=== PATIENT | female | born 1980 | race Caucasian/White ===

== ENCOUNTER 2016-08-05 12:54 | Inpatient (IN) | payer MEDICARE, MEDICAID ==
[~2016-08-05] VITALS: Ht 154.9 cm; Wt 95.2 kg
[~2016-08-05 12:54] MED LIST: ADDE10CA3; ADDE30CA PO; AMBI10TA; AMBI10TA PO; AMPH30TA PO; BUSP15TA; DOXE25CA PO; EFFE150C PO; EFFE75CA75 PO; EXCETAB80 PO; FERR325T; IBUP600T; LEVO75TA4 PO; MINI2CAP PO; Metamucil PO; PAXI40TA; PRED20TA; SENO8.6T2 PO; TRAZ50TA4 PO; XANA1TAB2; XANA1TAB2 PO
[2016-08-05] MEDS ORDERED: BELS1TAB3 PO (13:06)
[2016-08-05] MEDS ORDERED: ADDE30CA PO (13:06)
[2016-08-05] MEDS ORDERED: AMOX875T PO (13:07)
[2016-08-05 15:00] LABS: MEAN CORPUSCULAR HEMOGLOBIN 29.6 pg (27.0-33.0); MEAN CORPUSCULAR HGB CONC 32.9 g/dl (32.0-36.5); MEAN CORPUSCULAR VOLUME 90.1 fl (80.0-96.0); RED CELL DISTRIBUTION WIDTH 12.9 % (11.5-14.5); WHITE BLOOD COUNT 15.8 K/mm3 (4.0-10.0)
[2016-08-05 15:30] LABS: ALBUMIN/GLOBULIN RATIO 1.05 (1.00-1.93); ALKALINE PHOSPHATASE 68 U/L (45-117); ALT/SGPT 18 U/L (12-78); ANION GAP 9 MEQ/L (8-16); AST/SGOT 12 U/L (15-37); BILIRUBIN,DIRECT < 0.1 MG/DL (0.0-0.2); BILIRUBIN,TOTAL 0.4 MG/DL (0.2-1.0); BLOOD UREA NITROGEN 12 MG/DL (7-18); CALCIUM LEVEL 8.6 MG/DL (8.5-10.1); CARBON DIOXIDE LEVEL 26 MEQ/L (21-32); CHLORIDE LEVEL 108 MEQ/L (98-107); CREATININE FOR GFR 0.76 MG/DL (0.55-1.02); GLOMERULAR FILTRATION RATE > 60.0 (>60); GLUCOSE, FASTING 129 MG/DL (70-105); POTASSIUM SERUM 3.3 MEQ/L (3.5-5.1); SODIUM LEVEL 143 MEQ/L (136-145); TOTAL PROTEIN 7.8 GM/DL (6.4-8.2)
[2016-08-05 15:33] LABS: METHADONE URINE NEGATIVE (NEGATIVE)
[2016-08-05] MEDS ORDERED: LORazepam 0.5 MG TAB PO STA (16:46)
[2016-08-05] MEDS ORDERED: LORazepam 1 MG TAB As Ordered ONE (16:56)
[2016-08-05] MEDS ORDERED: ADDE5TAB5 PO (18:50)
[2016-08-05 20:30] VITALS: BP 143/93
[2016-08-05] MEDS ORDERED: ENTER DRUG NAME HERE (PATIENT'S OWN MED) PO SCH (21:30)
[2016-08-05] MEDS ORDERED: MAALOX 30 ML SUSP *UDC PO PRN (21:30)
[2016-08-05] MEDS ORDERED: MOM 30ML SUSPENSION UDC PO PRN (21:30)
[2016-08-05] MEDS ORDERED: zolPIDEM TARTRATE 10MG TAB PO ONE (21:45)
[2016-08-06 06:14] VITALS: BP 121/76
[2016-08-06] MEDS: LEVOTHYROXINE 0.075 MG TAB (75 MCG) PO SCH (06:26)
[2016-08-06] MEDS: NICOTINE 21MG/24HR 1 EA TRANSDERMAL TD SCH (08:14)
[2016-08-06] MEDS: ADDERALL 5 MG TAB PO SCH ×2 (08:15→13:33)
[2016-08-06] MEDS: AMOXICILLIN 875 MG TAB PO SCH ×2 (10:34→22:37)
--- NOTE | 2016-08-06 11:39 | HPEPDOC ---
Medical History and Physical Date of Admission Aug 05, 2016 at 18:03 History and Physical PCP: Manan OCONNOR ATTENDING: Dr. Navin Segundo HPI: 35yoF admitted to [facility] for unspecified depressive disorder, being medically examined today. Patient states she was started on amoxicillin last Thursday for bilateral otitis media. She states her symptoms have improved. She was seen at urgent care in [place]. Denies any fevers, chills, weakness, fatigue, JUAN, CP, SOB, cough, palpitations, abdominal pain, N/V/D or changes in bowel or bladder habits. PMHx: Fibromyalgia Hypothyroidism Anxiety Depression PTSD Obesity BMI 39.7 Tobacco use PSHX: Right carpal tunnel release SOCHX: Resides in: [facility] Marital Status: Single Kids: 1 Employment: Unemployed Tobacco use: One pack per day ETOH: Denies Illicit Drugs: Denies IV Drug Use: Denies Tattoos done unprofessionally: Denies FAMHX: Mother: Alive, well Father: Alive, lung disease Siblings: One sister Alive, liver disease Children: Alive, autism Unexpected deaths due to medical reasons: None. ROS: As noted in HPI, otherwise 11pt ROS of systems reviewed and remarkable only for LMP 07/06/16 PE: GEN: 35 yo F appears stated age. Well-nourished, well developed. No acute distress. Alert and oriented x 3. Pleasant, interactive. HEENT: Normocephalic, atraumatic. Pupils are equal, round, and reactive to light. Extraocular movements are intact. No nystagmus appreciated. Sclera are nonicteric. Conjunctiva without injection. Nose midline. Nasal turbinates without bogginess. EACs both patent BL. TMs both visualized there is serous fluid noted L>R. No facial asymmetry. Moist mucous membranes. Dentition fair. Pharynx pink and moist, no cobblestoning. Neck supple, trachea midline. No lymphadenopathy or thyromegaly appreciated. CHEST: Regular rate and rhythm, +S1, +S2 LUNGS: Clear to auscultation bilaterally. No wheezes, rales, or rhonchi. Breathing appears symmetric and easy. Patient is speaking in full sentences. No accessory muscle use. ABD: Round, soft, non-tender, non-distended. +Bowel sounds throughout. No rebound or guarding. No costovertebral angle tenderness. EXT: Pulses 2+ bilaterally dorsalis pedis and radial. No lower extremity edema appreciated. SKIN: [place], dry, warm. Capillary refill <2sec. No rashes. NEURO: Alert and oriented x 3. Cranial nerves III-XII are intact. No focal deficits appreciated. EKG: Pending. A&P: 35yoF admitted to [facility] for unspecified depressive disorder 1. Psych. Plan per Psychiatry. Obtain baseline EKG to assure the safety of psychiatric medications as they can prolong the QT interval. 2. Nicotine dependence. Patch available. 3. Fibromyalgia. Continue Tylenol as needed. 4. Follow up with PCP on discharge. 5. Hypothyroidism. Continue levothyroxine 75 g daily. TSH noted within normal limits. 6. Obesity, BMI 39.7. Complicates care. 7. H/O Bilateral otitis media. Finish course of amoxicillin 875 mg by mouth twice a day. Recheck CBC. 8. Hypokalemia. Recheck BMP. Supplement if needed. 9. Staff member present throughout exam, Mary Lou LINDSAY. Vital Signs Vital Signs Label Value Date Time Patient Temperature 96.4 degrees F 08/06/16613 Temperature Source Tympanic 08/06/16 06 Pulse 97 08/06/16 0614 Respiratory Rate 18 bpm 08/06/16 0614 Blood Pressure Assessment 121/76 (91) 08/06/16 0614 Laboratory Data Labs 24H Laboratory Tests 2 08/05/16 14:48: Acetaminophen Level < 2.0L, Aspartate Amino Transf (AST/SGOT) 12L, Alanine Aminotransferase (ALT/SGPT) 18, Alkaline Phosphatase 68, Total Bilirubin 0.4, Direct Bilirubin < 0.1, Albumin 4.0, Albumin/Globulin Ratio 1.05, Anion Gap 9, Calcium Level 8.6, Ethyl Alcohol Level < 0.003, Glomerular Filtration Rate > 60.0, Salicylates Level < 1.7L, Thyroid Stimulating Hormone (TSH) 2.020, Total Protein 7.8 08/05/16 14:49: Urine Amphetamines Screen NEGATIVE, Urine Benzodiazepines Screen NEGATIVE, Urine Opiates Screen NEGATIVE, Urine Barbiturates Screen NEGATIVE, Urine Cannabinoids Screen NEGATIVE, Urine Cocaine Metabolite Screen NEGATIVE, Urine Methadone Screen NEGATIVE, Urine Phencyclidine Screen NEGATIVE CBC/BMP Laboratory Tests 08/05/16 14:48 Red Blood Count 4.54, Mean Corpuscular Volume 90.1, Mean Corpuscular Hemoglobin 29.6, Mean Corpuscular Hemoglobin Concent 32.9, Red Cell Distribution Width 12.9 Home Medications Scheduled Amoxicillin (Amoxicillin) 875 Mg Tab 875 MG PO BID ON DAY 4 OF 7 DAY COURSE Amphetamine/Dextroamphetamine (Adderall 5 mg) 1 Tab Tab 30 MG PO BID Levothyroxine Sodium (Synthroid) 75 Mcg Tab 75 MCG PO DAILY PT STATES HAS NOT TAKEN IN WEEKS Allergies Coded Allergies: Latex (Verified Allergy, Mild, RASH, 08/05/16) Ziprasidone (Verified Allergy, Unknown, 08/05/16) Trixie Elias Aug 06, 2016 11:39
[2016-08-06 12:49] LABS: MEAN CORPUSCULAR HEMOGLOBIN 29.2 pg (27.0-33.0); MEAN CORPUSCULAR HGB CONC 32.6 g/dl (32.0-36.5); MEAN CORPUSCULAR VOLUME 89.6 fl (80.0-96.0); RED CELL DISTRIBUTION WIDTH 12.9 % (11.5-14.5); WHITE BLOOD COUNT 15.2 K/mm3 (4.0-10.0)
[2016-08-06 13:09] LABS: ANION GAP 12 MEQ/L (8-16); BLOOD UREA NITROGEN 14 MG/DL (7-18); CALCIUM LEVEL 9.2 MG/DL (8.5-10.1); CARBON DIOXIDE LEVEL 24 MEQ/L (21-32); CHLORIDE LEVEL 105 MEQ/L (98-107); CREATININE FOR GFR 0.79 MG/DL (0.55-1.02); GLOMERULAR FILTRATION RATE > 60.0 (>60); GLUCOSE, FASTING 96 MG/DL (70-105); POTASSIUM SERUM 3.8 MEQ/L (3.5-5.1); SODIUM LEVEL 141 MEQ/L (136-145)
[2016-08-06] MEDS: ACETAMINOPHEN TAB 650MG DOSE (2X325MG) PO PRN (14:59)
[2016-08-06] MEDS ORDERED: IBUPROFEN 800 MG TAB PO PRN (15:30)
--- NOTE | 2016-08-06 17:15 | ECGEPIP ---
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
[2016-08-06 18:00] VITALS: BP 138/86
[2016-08-06] MEDS ORDERED: LORazepam 1 MG TAB PO PRN ×2 (19:30→22:00)
[2016-08-06] MEDS ORDERED: LORazepam 1 MG TAB PO ONE (21:00)
[2016-08-06] MEDS ORDERED: PERCOCET 5MG/325MG TAB PO ONE (21:00)
[2016-08-06] MEDS: zolPIDEM TARTRATE 10MG TAB PO SCH (22:38)
[2016-08-07] MEDS: LEVOTHYROXINE 0.075 MG TAB (75 MCG) PO SCH (06:19)
[2016-08-07 06:43] VITALS: BP 113/57
[2016-08-07] MEDS: AMOXICILLIN 875 MG TAB PO SCH ×2 (07:49→21:39)
[2016-08-07] MEDS: ADDERALL 5 MG TAB PO SCH ×2 (07:49→13:20)
[2016-08-07] MEDS: NICOTINE 21MG/24HR 1 EA TRANSDERMAL TD SCH (07:50)
[2016-08-07] MEDS ORDERED: PERCOCET 5MG/325MG TAB PO ONE ×2 (08:00→10:00)
[2016-08-07] MEDS ORDERED: PSEUDOEPHEDRINE 30 MG TAB PO PRN (10:15)
--- NOTE | 2016-08-07 11:55 | IPNPDOC ---
Subjective Date Seen The patient was seen on 08/07/16. Subjective Chief Complaint/HPI The patient is a 35-year-old female admitted with a reason for visit of Upspecified Depressive Disorder. Events since last encounter Requested to reevaluate the patient for ear pain. The patient states last evening she was having left-sided ear pain. She still has been having some upper respiratory congestion and some pressure in her ears. Clear rhinorrhea. No sore throat. Some postnasal drip No chest congestion. No coughing. No chest pain or shortness of breath. Overall symptoms have been improved on amoxicillin. She started this last Thursday from urgent care. Objective Physical Examination General Exam: Positive: Alert Eye Exam: Positive: PERRLA ENT Exam: Positive: Atraumatic, Ext Auditory Canal Nml (there is no cerumen noted in her ear canals.), Other ENT (there is serous fluid noted behind the tympanic membranes bilaterally left greater than right with mild retraction noted of the left tympanic membrane.), Pinna Normal (there is no external tenderness with palpation.) Neck Exam: Positive: Supple Chest Exam: Positive: Clear to auscultation Heart Exam: Positive: Normal S1, Normal S2, Rate Normal, Regular Rhythm, Negative: Murmurs, Rubs Skin Exam: Positive: Nl turgor and temperature Assessment /Plan Problems (1) Bilateral otitis media Status: Acute Problem Text: * Patient will finish her course of amoxicillin 875 mg by mouth twice a day. * Patient is afebrile * Symptoms have been improving. (2) Eustachian tube dysfunction Status: Acute Problem Text: * Patient has experienced some left-sided ear pain. * This is likely related to eustachian tube dysfunction. * We will add Sudafed 30 mg every 6 hours as needed for ear pain or pressure. * Add Flonase 2 sprays each nostril daily. * Continue with ibuprofen 800 mg 3 times a day as needed. * Discussed with patient who verbalizes understanding and agreement Plan/VTE VTE Prophylaxis Ordered?: No (ambulatory) VS, I&O, 24H, Fishbone Vital Signs/I&O Vital Signs Date Time Temp Pulse Resp B/P Pulse Ox O2 Delivery O2 Flow Rate FiO2 08/07/16 07:50 16 08/07/16 06:43 96.3 82 113/57 08/05/16 20:15 99 08/05/16 18:25 Room Air Laboratory Data 24H LABS Laboratory Tests 2 08/06/16 12:00: Anion Gap 12, Blood Urea Nitrogen 14, Creatinine 0.79, Sodium Level 141, Potassium Level 3.8, Chloride Level 105, Carbon Dioxide Level 24, Calcium Level 9.2, Glomerular Filtration Rate > 60.0 CBC/BMP Laboratory Tests 08/06/16 12:00 Calcium Level 9.2, Red Blood Count 4.60, Mean Corpuscular Volume 89.6, Mean Corpuscular Hemoglobin 29.2, Mean Corpuscular Hemoglobin Concent 32.6, Red Cell Distribution Width 12.9 Trixie Elias Aug 07, 2016 11:55
[2016-08-07] MEDS: FLUTICASONE PROP 0.05% NASAL SPRAY 16 GM (FLONASE) SCH (12:01)
[2016-08-07] MEDS ORDERED: PERCOCET 5MG/325MG TAB PO PRN (18:00)
[2016-08-07] MEDS ORDERED: ONDANSETRON 4 MG ORAL DISINTEGRATING TAB (S0181) PO PRN (18:00)
[2016-08-07] MEDS: zolPIDEM TARTRATE 10MG TAB PO SCH (21:39)
[2016-08-08] MEDS: LEVOTHYROXINE 0.075 MG TAB (75 MCG) PO SCH (06:13)
[2016-08-08 06:44] VITALS: BP 120/75
[2016-08-08] MEDS: FLUTICASONE PROP 0.05% NASAL SPRAY 16 GM (FLONASE) SCH (08:44)
[2016-08-08] MEDS: ADDERALL 5 MG TAB PO SCH ×2 (08:44→14:18)
[2016-08-08] MEDS: AMOXICILLIN 875 MG TAB PO SCH ×2 (08:45→22:23)
[2016-08-08] MEDS: NICOTINE 21MG/24HR 1 EA TRANSDERMAL TD SCH (08:45)
[2016-08-08 18:00] VITALS: BP 135/88
[2016-08-08] MEDS: zolPIDEM TARTRATE 10MG TAB PO SCH (22:23)
[2016-08-09] MEDS: LEVOTHYROXINE 0.075 MG TAB (75 MCG) PO SCH (06:15)
[2016-08-09 07:07] VITALS: BP 115/67
[2016-08-09] MEDS: FLUTICASONE PROP 0.05% NASAL SPRAY 16 GM (FLONASE) SCH (08:08)
[2016-08-09] MEDS: AMOXICILLIN 875 MG TAB PO SCH ×2 (08:09→21:19)
[2016-08-09] MEDS: NICOTINE 21MG/24HR 1 EA TRANSDERMAL TD SCH (08:09)
[2016-08-09] MEDS: ADDERALL 5 MG TAB PO SCH ×2 (08:09→14:06)
[2016-08-09 18:00] VITALS: BP 126/80
[2016-08-09] MEDS: zolPIDEM TARTRATE 10MG TAB PO SCH (21:18)
[2016-08-10] MEDS: LEVOTHYROXINE 0.075 MG TAB (75 MCG) PO SCH (06:09)
[2016-08-10 06:53] VITALS: BP 127/56
[2016-08-10] MEDS: NICOTINE 21MG/24HR 1 EA TRANSDERMAL TD SCH (08:27)
[2016-08-10] MEDS: ADDERALL 5 MG TAB PO SCH ×2 (08:27→14:01)
[2016-08-10] MEDS: AMOXICILLIN 875 MG TAB PO SCH ×2 (08:27→21:06)
[2016-08-10] MEDS: FLUTICASONE PROP 0.05% NASAL SPRAY 16 GM (FLONASE) SCH (08:27)
[2016-08-10 18:00] VITALS: BP 134/86
[2016-08-10] MEDS: zolPIDEM TARTRATE 10MG TAB PO SCH (21:46)
[2016-08-11] MEDS: LEVOTHYROXINE 0.075 MG TAB (75 MCG) PO SCH (06:15)
[2016-08-11] MEDS: ACETAMINOPHEN TAB 650MG DOSE (2X325MG) PO PRN (06:17)
[2016-08-11 06:23] VITALS: BP 139/91
[2016-08-11] MEDS: AMOXICILLIN 875 MG TAB PO SCH ×2 (08:17→22:04)
[2016-08-11] MEDS: FLUTICASONE PROP 0.05% NASAL SPRAY 16 GM (FLONASE) SCH (08:17)
[2016-08-11] MEDS: ADDERALL 5 MG TAB PO SCH ×2 (08:18→14:34)
[2016-08-11] MEDS: NICOTINE 21MG/24HR 1 EA TRANSDERMAL TD SCH (08:18)
--- NOTE | 2016-08-11 16:52 | IPNPDOC ---
[facility] Progress Note Progress Note DATE OF SERVICE: 08/11/16 HISTORY: The patient was met with today where she described that she had been thinking about the events that had led her to her suicidal thinking. She described that she had begun to think about the traumas that she experienced and their effects on her mood. She related a sense of remorse that she felt as though she did not engage fully in her outpatient psychotherapy. She described feeling as though she withheld much of her deeper thoughts from her therapist. She stated that exploration of these thoughts were difficult and that she frequently would retreat away from her therapist when she approached subjects were too difficult for her. She described that she had an appointment tomorrow and that she was interested in going home as she wanted to engage with her therapist more deeply. She describes difficulties with CPS and care of her children. She was able to identify provoking factors that have led to her admission. The nursing staff had no overt complaints about her over the weekend. She has been noted to attend groups frequently. VITAL SIGNS: See below. NEW TEST RESULTS: None. CURRENT MEDICATIONS: See below. MENTAL STATUS EXAMINATION: Patient is a 35-year old female, who is and cooperative with good hygiene, wearing sweatshirt and jeans. Speech: Is normal in rate volume and articulation. Her speech is coherent and spontaneous. Language skills are intact Thought processes including: Goal directed and future orientated Thought content: Logical and coherent with a linear thought process. Abstract reasoning, and computation: Grossly intact. Description of associations: Intact Description of abnormal or psychotic thoughts: Denies any suicidal or homicidal thoughts. Denies any auditory or visual hallucinations. Does not appear to be responding to internal stimuli Judgment: Fair Insight: Fair Orientation to time place and person Recent and remote memory: Immediate, short-term and long-term memory as evidenced by her ability to remember events from her mission, earlier in the day and autobiographical information Attention span and concentration: Good Language: Normal Fund of knowledge: Good Mood: "Better" Affect: Euthymic with a full range DIAGNOSES: 1. Unspecified depression. 2. Unspecified trauma/stressor related disorder. 3. Tobacco use disorder, moderate, and controlled setting ASSESSMENT: A 35-year-old woman with a history of symptoms consistent with PTSD presenting with depressed mood and suicidal ideation after stressors of having CPS involved in the care of her children. She over her mission has gained more insight into the causes and provoking factors towards her admission. MANAGEMENT PLAN: 1. Continue home Adderall with no changes (see below) 2. Continue home zolpidem with no changes (see below) TIME SPENT: 25 minutes. Vital Signs Vital Signs Date Time Temp Pulse Resp B/P Pulse Ox O2 Delivery O2 Flow Rate FiO2 08/11/16 06:23 97.1 91 20 139/91 08/05/16 20:15 99 08/05/16 18:25 Room Air Current Medications Current Medications Acetaminophen (Tylenol Tab) 650 mg Q6HP PRN PO HEADACHE or DISCOMFORT Last administered on 08/11/16 06:17; Start 08/05/16 at 21:30; Stop 09/04/16 at 21:29 Al Hydrox/Mg Hydrox/Simethicone (Mylanta) 30 ml Q4HP PRN PO HEARTBURN/ INDIGESTION; Start 08/05/16 at 21:30; Stop 09/04/16 at 21:29 Amoxicillin (Amoxicillin) 875 mg BID PO Last administered on 08/11/16 08:17; Start 08/06/16 at 09:00; Stop 08/13/16 at 08:59 Amphetamine/ Dextroamphetamine (Adderall) 30 mg BID@09,14 PO Last administered on 08/11/16 14:34; Start 08/06/16 at 09:00; Stop 08/13/16 at 08:59 Fluticasone Propionate (Flonase 0.05% Nasal [place]) 2 spray DAILY NA Last administered on 08/11/16 08:17; Start 08/07/16 at 09:00; Stop 09/06/16 at 08:59 Home Med (Med Rec Complete!) ASDIRECTED XX ; Start 08/05/16 at 19:00; Stop at 19:00; Status DC Ibuprofen (Advil) 800 mg TID PRN PO MODERATE PAIN (PS 5-7) Last administered on 08/06/16 16:13; Start 08/06/16 at 15:30; Stop 09/05/16 at 15:29 Levothyroxine Sodium (Synthroid) 0.075 mg DAILY@06 PO Last administered on 08/11 06:15; Start 08/06/16 at 06:00; Stop 09/05/16 at 05:59 Lorazepam (Ativan) 1 mg QHS PRN PO IF 1ST DOSE NOT EFFECTIVE; Start 08/06/16 at 19:30; Stop 08/13/16 at 19:29; Status Cancel Lorazepam (Ativan) 1 mg QHS PRN PO IF 1ST DOSE NOT EFFECTIVE Last administered on 08/06/16 23:50; Start 08/06/16 at 22:00; Stop 08/06/16 at 23:59; Status DC Magnesium Hydroxide (Milk Of Magnesia) 30 ml DAILYPRN PRN PO CONSTIPATION; Start 08/05/16 at 21:30; Stop 09/04/16 at 21:29 Nicotine (Nicoderm Cq 21mg) 1 patch DAILY TD Last administered on 08/11/16 08: 18; Start 08/06/16 at 09:00; Stop 09/05/16 at 08:59 Ondansetron HCl (Zofran Odt) 4 mg Q6HP PRN PO NAUSEA OR VOMITING; Start at 18:00; Stop 09/06/16 at 17:59 Oxycodone/ Acetaminophen (Percocet 5mg/ 325mg Tablet) 1 tab Q4HP PRN PO MILD/ MODERATE PAIN (PS 1-7) Last administered on 08/07/16 23:05; Start 08/07/16 at 18: 00; Stop 08/14/16 at 17:59 Patient Own Medication (Patient'S Own Med) 1 ea ASDIRECTED PO ; Start 08/05/16 at 21:30; Stop 08/05/16 at 21:31; Status DC Pseudoephedrine HCl (Sudafed) 30 mg Q6HP PRN PO ear fullness/pressure; Start at 10:15; Stop 09/06/16 at 10:14 Zolpidem Tartrate (Ambien) 10 mg QHS PO Last administered on 08/10/16 21:46; Start 08/06/16 at 21:00; Stop 08/13/16 at 20:59 Allergies Coded Allergies: Latex (Verified Allergy, Mild, RASH, 08/05/16) Ziprasidone (Verified Allergy, Unknown, 08/05/16) GME ATTESTATION My preceptor for this patient encounter was fully available. As needed, all aspects of the patient interview, examination, medical decision making process, and medical care plan development were reviewed and approved by the preceptor. Preceptor is aware and concurs with the plan as stated in the body of this note and will attest to such by his/her cosignature. MAURICIO DELACRUZ DO Aug 11, 2016 16:52
[2016-08-11 18:00] VITALS: BP 144/92
[2016-08-11] MEDS: zolPIDEM TARTRATE 10MG TAB PO SCH (22:04)
[2016-08-12] MEDS: LEVOTHYROXINE 0.075 MG TAB (75 MCG) PO SCH (06:09)
[2016-08-12 06:43] VITALS: BP 104/60
[2016-08-12] MEDS: AMOXICILLIN 875 MG TAB PO SCH ×2 (08:13→21:36)
[2016-08-12] MEDS: FLUTICASONE PROP 0.05% NASAL SPRAY 16 GM (FLONASE) SCH (08:13)
[2016-08-12] MEDS: ADDERALL 5 MG TAB PO SCH ×2 (08:13→14:20)
[2016-08-12] MEDS: NICOTINE 21MG/24HR 1 EA TRANSDERMAL TD SCH (08:14)
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
[2016-08-12 18:00] VITALS: BP 132/79
[2016-08-12] MEDS: zolPIDEM TARTRATE 10MG TAB PO SCH (21:36)
[2016-08-13] MEDS: LEVOTHYROXINE 0.075 MG TAB (75 MCG) PO SCH (05:54)
[2016-08-13 06:00] VITALS: BP 119/64
[2016-08-13] MEDS: AMOXICILLIN 875 MG TAB PO SCH (08:33)
[2016-08-13] MEDS: FLUTICASONE PROP 0.05% NASAL SPRAY 16 GM (FLONASE) SCH (08:33)
[2016-08-13] MEDS: ADDERALL 5 MG TAB PO SCH (08:33)
[2016-08-13] MEDS: NICOTINE 21MG/24HR 1 EA TRANSDERMAL TD SCH (08:34)
[2016-08-13] MEDS ORDERED: FLUTISP (08:37)
[2016-08-13] MEDS ORDERED: NICO21PAT TD (08:37)
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
== END 2016-08-13 11:35 | disposition home or self-care (01) | DRG 881 ==
LOC: M ED 15:10 → M ED INP 18:03 → M PSY 20:25
PROVIDERS: ADMIT Psychiatry & Neurology Psychiatry; ATTEND Internal Medicine Addiction Medicine
DX: F32.9 Major depressive disorder, single episode, unspecified (principal); F17.210 Nicotine dependence, cigarettes, uncomplicated; M79.7 Fibromyalgia; E03.9 Hypothyroidism, unspecified; E87.6 Hypokalemia; F43.11 Post-traumatic stress disorder, acute; E66.9 Obesity, unspecified; F43.12 Post-traumatic stress disorder, chronic; F90.9 Attention-deficit hyperactivity disorder, unspecified type; H66.93 Otitis media, unspecified, bilateral; H69.92 Unspecified Eustachian tube disorder, left ear; Z79.899 Other long term (current) drug therapy; Z91.040 Latex allergy status; Z88.8 Allergy status to other drugs, medicaments and biological substances; Z68.39 Body mass index [BMI] 39.0-39.9, adult

== ENCOUNTER → 2016-09-18 | Outpatient (CLI) | payer MEDICARE, MEDICAID ==
[~2016-09-18] MED LIST changes: +ADDE5TAB5 PO; +AMOX875T PO; +BELS1TAB3 PO; +FLOM5CAP PO; +FLUTISP; +ISOVUE-370 76% 100ML VIAL (Q9967) As Ordered ONE; +NICO21PAT TD; +NORCOTAB PO; +ZOFR4TAB3 PO
--- NOTE | 2016-09-18 14:10 | REP ---
CT urogram: Multiphase CT scanning of the abdomen pelvis are performed. Scanning is initially performed without IV contrast. This is followed by IV contrast enhanced scanning with dual phase scanning, initially during the renal cortical phase of enhancement and again later during the renal excretion phase of enhancement. Comparison is 07/21/2014. On the images prior IV contrast. There are small nonobstructive calculi in both kidneys. There is no hydronephrosis. In the pelvis there is a calcification posterolateral to the urinary bladder on the left. This can be seen in the distal left ureter at its junction with the urinary bladder subsequently during the contrast enhanced scans. This calculus is only partially obstructive. On the reconstructed coronal views a small volume of contrast is seen in the distal left ureter distal to the calculus. There is mild distension of the left ureter. There is no hydronephrosis of the left kidney. There is no perinephric stranding. The visualized lung woo are unremarkable. The hepatic parenchyma, gallbladder, pancreas and spleen are normal size, homogeneous and unremarkable on all phases of the study. The adrenals are unremarkable. The abdominal aorta, bowel and mesentery are unremarkable. Pelvis: The appendix is unremarkable. The uterus and adnexa are unremarkable except for a left adnexal 2 cm follicle. There is no ascites or adenopathy. Impression: There is an incompletely obstructing calculus in the distal left ureter at its junction with the urinary bladder. There is mild left hydroureter. There is no left hydronephrosis. The calculus measures 6 mm in diameter. There are small bilateral nonobstructing renal calculi. There is a 2 cm left adnexal cyst. Signed by Alexsander Macias MD 09/18/2016 02:02 P
== END ==
LOC: M RAD 12:35
PROVIDERS: ATTEND Nurse Practitioner Women's Health
DX: R31.0 Gross hematuria (principal); R10.9 Unspecified abdominal pain; N20.2 Calculus of kidney with calculus of ureter; N13.4 Hydroureter
CPT/HCPCS: 74178; Q9967

== ENCOUNTER 2016-09-22 08:55 | Emergency (ER) | payer MEDICARE, MEDICAID ==
[~2016-09-22] VITALS: Ht 154.9 cm; Wt 97.5 kg
[~2016-09-22 08:55] MED LIST changes: -FLOM5CAP PO; -ISOVUE-370 76% 100ML VIAL (Q9967) As Ordered ONE; -NORCOTAB PO; -ZOFR4TAB3 PO
[2016-09-22 09:37] LABS: DIFF SLIDE NUMBER 134; MEAN CORPUSCULAR HEMOGLOBIN 28.6 pg (27.0-33.0); MEAN CORPUSCULAR HGB CONC 32.4 g/dl (32.0-36.5); MEAN CORPUSCULAR VOLUME 88.2 fl (80.0-96.0); PLATELET COUNT, AUTOMATED 361 k/mm3 (150-450); RED CELL DISTRIBUTION WIDTH 13.2 % (11.5-14.5); WHITE BLOOD COUNT 12.6 K/mm3 (4.0-10.0)
[2016-09-22 09:48] LABS: ANION GAP 8 MEQ/L (8-16); BLOOD UREA NITROGEN 14 MG/DL (7-18); CALCIUM LEVEL 8.7 MG/DL (8.5-10.1); CARBON DIOXIDE LEVEL 24 MEQ/L (21-32); CHLORIDE LEVEL 106 MEQ/L (98-107); CREATININE FOR GFR 0.82 MG/DL (0.55-1.02); GLOMERULAR FILTRATION RATE > 60.0 (>60); GLUCOSE, FASTING 104 MG/DL (70-105); POTASSIUM SERUM 3.8 MEQ/L (3.5-5.1); SODIUM LEVEL 138 MEQ/L (136-145)
[2016-09-22] MEDS ORDERED: ONDANSETRON 4MG/2ML VIAL (J2405) IV ONE (10:00)
[2016-09-22] MEDS ORDERED: KETOROLAC 30 MG/ML VIAL (J1885) IV ONE (10:00)
--- NOTE | 2016-09-22 11:15 | REP ---
RENAL AND BLADDER ULTRASOUND: Real-time sonographic evaluation of the kidneys is performed and demonstrates both kidneys to be normal in size and echotexture, right kidney measuring 10.7 x 5.2 x 4.6 cm and left kidney 11.7 x 5.4 x 5.8 cm. There is mild left hydronephrosis. There is no right hydronephrosis. No renal stones are seen. Urinary bladder measures 5.2 x 7.0 x 5.4 cm with no intraluminal calculus. A left ureteral jet is visualized multiple times with Doppler color evaluation. Right ureteral jet could not be visualized despite observation for a period of 5 minutes. IMPRESSION: Left hydronephrosis. Left ureteral jet visualized multiple times. No right ureteral jet seen. Signed by Alexsander Villarreal MD 09/22/2016 08:08 P
[2016-09-22] MEDS ORDERED: NORCOTAB PO (11:42)
[2016-09-22] MEDS ORDERED: FLOM5CAP PO (11:42)
[2016-09-22] MEDS ORDERED: ZOFR4TAB3 PO (11:42)
[2016-09-22] MEDS ORDERED: MORPHINE 2 MG/ML 1ML SYRINGE IV ONE (11:45)
[2016-09-22 12:56] VITALS: BP 106/56
== END 2016-09-22 12:58 | disposition home or self-care (01) ==
LOC: M ED 09:43
DX: N20.1 Calculus of ureter (principal); E03.9 Hypothyroidism, unspecified; F41.9 Anxiety disorder, unspecified; F43.10 Post-traumatic stress disorder, unspecified; G47.00 Insomnia, unspecified; Z87.442 Personal history of urinary calculi; Z79.899 Other long term (current) drug therapy; Z91.040 Latex allergy status; Z88.8 Allergy status to other drugs, medicaments and biological substances; F17.210 Nicotine dependence, cigarettes, uncomplicated
CPT/HCPCS: 76775; 80048; 81001; 85025; 87086; 96374; 96375; 99282; J1885; J2405

== ENCOUNTER 2016-09-24 10:50 | Emergency (ER) | payer MEDICARE, MEDICAID ==
[~2016-09-24] VITALS: Ht 154.9 cm; Wt 95.3 kg
[~2016-09-24 10:50] MED LIST changes: +FLOM5CAP PO; +NORCOTAB PO; +ZOFR4TAB3 PO
[2016-09-24] MEDS ORDERED: ONDANSETRON 4MG/2ML VIAL (J2405) IV ONE (11:15)
[2016-09-24] MEDS ORDERED: KETOROLAC 30 MG/ML VIAL (J1885) IV ONE (11:15)
[2016-09-24 11:33] LABS: BASO # 0.1 K/mm3 (0.0-0.2); BASO % 0.5 % (0.0-1.0); EOS # 0.3 K/mm3 (0.0-0.50); EOS % 2.2 % (0.0-3.0); LARGE UNSTAINED CELL # 0.1 K/mm3 (0.0-0.4); LYMPH # 3.1 K/mm3 (1.5-4.5); LYMPH % 24.5 % (24.0-44.0); MEAN CORPUSCULAR HEMOGLOBIN 29.1 pg (27.0-33.0); MEAN CORPUSCULAR HGB CONC 32.4 g/dl (32.0-36.5); MEAN CORPUSCULAR VOLUME 89.9 fl (80.0-96.0); MONO # 0.6 K/mm3 (0.0-0.8); MONO % 4.6 % (0.0-5.0); NEUTROPHILS # 8.1 K/mm3 (1.8-7.7); NEUTROPHILS % 67.2 % (36.0-66.0); PLATELET COUNT, AUTOMATED 340 k/mm3 (150-450); RED CELL DISTRIBUTION WIDTH 13.1 % (11.5-14.5)
[2016-09-24 11:52] LABS: ANION GAP 4 MEQ/L (8-16); BLOOD UREA NITROGEN 11 MG/DL (7-18); CALCIUM LEVEL 9.3 MG/DL (8.5-10.1); CARBON DIOXIDE LEVEL 30 MEQ/L (21-32); CHLORIDE LEVEL 105 MEQ/L (98-107); GLOMERULAR FILTRATION RATE > 60.0 (>60); GLUCOSE, FASTING 95 MG/DL (70-105); POTASSIUM SERUM 3.8 MEQ/L (3.5-5.1); SODIUM LEVEL 139 MEQ/L (136-145)
[2016-09-24 12:05] VITALS: BP 142/80
[2016-09-24] MEDS ORDERED: PERCOCET 5MG/325MG TAB PO ONE (12:15)
--- NOTE | 2016-09-24 15:10 | REP ---
REASON: Left flank pain. History of renal calculi. COMPARISON: 09/18/2016 which showed a distal left ureterolith resulting in mild hydronephrosis and hydroureter. That calculus measured 6 mm. Multiple bilateral obstructing renal calculi were also noted. The lung bases are clear and unchanged. Limited evaluation of the solid intra-abdominal organs and gallbladder show no gross abnormalities or significant changes from the prior exam. Limited evaluation from the pancreas and adrenal glands show no changes. The small calculus seen in the inferior pole of the left kidney is unchanged. The multiple calculi seen in the right kidney are unchanged. There is no right-sided hydronephrosis or hydroureter. There is slightly increased left-sided hydronephrosis and hydroureter. The calculus seen at the level of the left ureterovesical junction is unchanged. There is no free fluid or free air in the abdomen or pelvis. The bowel loops and mesenteries are unchanged. The osseous structures are unchanged. IMPRESSION: No change in the appearance of the distal left ureterolith as described above with resultant findings, which have slightly increased. Signed by Tio Farmer DO 09/24/2016 04:52 P
== END 2016-09-24 12:38 | disposition home or self-care (01) ==
LOC: M ED 12:32
DX: N13.2 Hydronephrosis with renal and ureteral calculous obstruction (principal); R11.2 Nausea with vomiting, unspecified
CPT/HCPCS: 74176; 80048; 81001; 85025; 86140; 87086; 96374; 96375; 99283; J1885; J2405

== ENCOUNTER → 2016-09-25 | Outpatient (CLI) | payer MEDICARE, MEDICAID ==
[~2016-09-25] MED LIST changes: +BACT800T5 PO; +CIPR500T89 PO; +PERC5TAB6 PO
[2016-09-25 14:27] LABS: INR 0.85
== END ==
LOC: M SMT 10:57
PROVIDERS: ATTEND Nurse Practitioner Women's Health
DX: Z01.812 Encounter for preprocedural laboratory examination (principal); N20.1 Calculus of ureter; Z79.899 Other long term (current) drug therapy
CPT/HCPCS: 36415; 85610; 85730; G0463

== ENCOUNTER → 2016-09-26 | Day surgery (SDC) | payer MEDICARE, MEDICAID ==
[~2016-09-26] VITALS: Ht 154.9 cm; Wt 97.5 kg
[~2016-09-26] MED LIST changes: +CONRAY-60 60% 50ML VIAL (Q9961) As Ordered ONE; +GLYCOPYRROLATE INJ 0.2 MG/ML 2 ML VIAL As Ordered ONE; +LR 1,000 ML IV SCH; +METOCLOPRAMIDE INJ 10MG/2ML VIAL (J2765) As Ordered ONE; +MIDAZOLAM INJ 2 MG/2 ML VIAL (J2250) As Ordered ONE; +NEOSTIGMINE 1MG/ML 5 ML SYRINGE (J2710) As Ordered ONE; +ONDANSETRON 4MG/2ML VIAL (J2405) As Ordered ONE; +ONDANSETRON 4MG/2ML VIAL (J2405) IV PRN; +PERCOCET 5MG/325MG TAB PO PRN; +PROPOFOL 200 MG/20 ML VIAL As Ordered ONE; +dexameTHASONE 4 MG/ML 1ML VIAL (J1100) As Ordered ONE; +fentaNYL 100 MCG/2 ML INJECTION (J3010) As Ordered ONE; +fentaNYL 100 MCG/2 ML INJECTION (J3010) IV PRN
[2016-09-26 14:11] LABS: CONTROL LINE UCG INT CTR LINE PRESENT
--- NOTE | 2016-09-26 18:15 | REP ---
RETROGRADE PYELOGRAM: HISTORY: Ureteral stone. Two portable radiographs were obtained with the C-Arm. A left ureteral stent is present. A small amount of contrast material is present in the left renal pelvis. Fluoro time 12 seconds. IMPRESSION: Retrograde pyelogram as described above. Signed by Magno Sierra MD 09/26/2016 06:15 P
[2016-09-26 19:00] VITALS: BP 139/74
--- NOTE | 2016-09-27 15:06 | RO ---
DATE OF PROCEDURE: 09/26/2016 PREPROCEDURE DIAGNOSIS: Obstructing left ureteral stone. POSTPROCEDURE DIAGNOSIS: Obstructing left ureteral stone. PROCEDURE: Cystoscopy, left ureteroscopy with basket extraction of stone, left retrograde pyelogram with intraoperative interpretation of images, left ureteral stent placement. SURGEON: Dr. Emmanuel Gaitan EXTENSION WORK DIRECTOR: None. ANESTHESIA: General. OPERATIVE INDICATIONS: This is a 35-year-old female who was found to have an obstructing 6 mm left ureterovesical junction stone. It was recommended she be brought to the operating room today for the above listed procedure. DESCRIPTION OF PROCEDURE: The patient was brought to the operating room where general anesthesia was induced. Prophylactic antibiotics were infused. She was then placed in dorsal lithotomy position and prepped and draped in the usual sterile fashion. A rigid cystoscope was inserted into the urethral meatus and advanced to the bladder. Once within the bladder, a wire was advanced up the left collecting system. I then went up the left collecting system with a short semirigid ureteroscope and within the distal left ureter an impacted 6 mm stone was seen. I then advanced the basket past the stone and grabbed the stone and was able to remove the stone from the ureter. I then went up the more proximal ureter and did not see any more stone fragments. A retrograde pyelogram was then performed and was negative for extravasation, but notable for moderate left hydroureteronephrosis. At this point, the previously placed wire was utilized to advance a 6 [place] x 22-32 cm JJ ureteral stent up into the left collecting system. The wire was then removed and there were adequate curls of the stent in the left renal pelvis and in the bladder. The bladder was then emptied of all fluid and this marked the conclusion of the procedure. The patient was then taken out of the dorsal lithotomy position, awakened from anesthesia and transported to the recovery room in stable condition. ESTIMATED BLOOD LOSS: 0 mL. COMPLICATIONS: None. SPECIMEN: Ureteral stone. PLAN: The patient will followup in the clinic in a week or two for stent removal. IAM
== END | disposition home or self-care (01) ==
LOC: M SDC 13:43
PROVIDERS: ATTEND Urology
DX: N20.1 Calculus of ureter (principal); K21.9 Gastro-esophageal reflux disease without esophagitis; F41.9 Anxiety disorder, unspecified; F90.9 Attention-deficit hyperactivity disorder, unspecified type; G47.00 Insomnia, unspecified; E03.9 Hypothyroidism, unspecified; F43.10 Post-traumatic stress disorder, unspecified; R31.9 Hematuria, unspecified; Z91.040 Latex allergy status; Z79.899 Other long term (current) drug therapy
CPT/HCPCS: 52332; 52352; 74420; 82360; 84703; 88300; C1726; C2617; J0690; J1100; J2250; J2405; J2765; J3010; Q9961

== ENCOUNTER 2016-09-28 10:34 | Emergency (ER) | payer MEDICARE, MEDICAID ==
[~2016-09-28] VITALS: Ht 154.9 cm; Wt 95.3 kg
[~2016-09-28 10:34] MED LIST changes: -BACT800T5 PO; -CIPR500T89 PO; -CONRAY-60 60% 50ML VIAL (Q9961) As Ordered ONE; -GLYCOPYRROLATE INJ 0.2 MG/ML 2 ML VIAL As Ordered ONE; -LR 1,000 ML IV SCH; -METOCLOPRAMIDE INJ 10MG/2ML VIAL (J2765) As Ordered ONE; -MIDAZOLAM INJ 2 MG/2 ML VIAL (J2250) As Ordered ONE; -NEOSTIGMINE 1MG/ML 5 ML SYRINGE (J2710) As Ordered ONE; -ONDANSETRON 4MG/2ML VIAL (J2405) As Ordered ONE; -ONDANSETRON 4MG/2ML VIAL (J2405) IV PRN; -PERC5TAB6 PO; -PERCOCET 5MG/325MG TAB PO PRN; -PROPOFOL 200 MG/20 ML VIAL As Ordered ONE; -dexameTHASONE 4 MG/ML 1ML VIAL (J1100) As Ordered ONE; -fentaNYL 100 MCG/2 ML INJECTION (J3010) As Ordered ONE; -fentaNYL 100 MCG/2 ML INJECTION (J3010) IV PRN
[2016-09-28] MEDS ORDERED: KETOROLAC 30 MG/ML VIAL (J1885) IV ONE (12:00)
[2016-09-28] MEDS ORDERED: MORPHINE 4 MG/ML 1ML SYRINGE IV ONE (12:00)
[2016-09-28] MEDS ORDERED: ONDANSETRON 4MG/2ML VIAL (J2405) IV ONE (12:00)
[2016-09-28 12:30] LABS: MEAN CORPUSCULAR HEMOGLOBIN 28.8 pg (27.0-33.0); MEAN CORPUSCULAR VOLUME 90.3 fl (80.0-96.0); WHITE BLOOD COUNT 15.1 K/mm3 (4.0-10.0)
[2016-09-28 12:31] LABS: BASO # 0.1 K/mm3 (0.0-0.2); BASO % 0.4 % (0.0-1.0); EOS # 0.1 K/mm3 (0.0-0.50); EOS % 0.9 % (0.0-3.0); LARGE UNSTAINED CELL # 0.2 K/mm3 (0.0-0.4); LYMPH # 3.8 K/mm3 (1.5-4.5); LYMPH % 25.3 % (24.0-44.0); MEAN CORPUSCULAR HGB CONC 31.9 g/dl (32.0-36.5); MONO # 0.9 K/mm3 (0.0-0.8); MONO % 5.9 % (0.0-5.0); NEUTROPHILS % 66.5 % (36.0-66.0); PLATELET COUNT, AUTOMATED 300 k/mm3 (150-450); RED CELL DISTRIBUTION WIDTH 13.5 % (11.5-14.5)
[2016-09-28 12:39] LABS: MICROSCOPIC INDICATED? MAN YES (NO)
[2016-09-28 12:43] LABS: BACTERIA, URINE MOD AMOUNT; HYALINE CAST, URINE NONE SEEN /lpf (0-1); MICROSCOPIC EXAM PERFORMED; RBC, URINE TNTC /hpf (0-3); SQUAMOUS EPITHELIAL CELL URINE MOD AMOUNT /hpf (SMALL AMT); WBC, URINE 30-40 /hpf (0-3)
[2016-09-28 12:52] LABS: ANION GAP 5 MEQ/L (8-16); BLOOD UREA NITROGEN 12 MG/DL (7-18); CALCIUM LEVEL 8.8 MG/DL (8.5-10.1); CARBON DIOXIDE LEVEL 28 MEQ/L (21-32); CHLORIDE LEVEL 108 MEQ/L (98-107); CREATININE FOR GFR 0.66 MG/DL (0.55-1.02); GLOMERULAR FILTRATION RATE > 60.0 (>60); GLUCOSE, FASTING 89 MG/DL (70-105); POTASSIUM SERUM 3.6 MEQ/L (3.5-5.1); SODIUM LEVEL 141 MEQ/L (136-145)
[2016-09-28 13:22] VITALS: BP 142/71
[2016-09-28] MEDS ORDERED: PERC5TAB6 PO (13:30)
[2016-09-28] MEDS ORDERED: CIPR500T89 PO (13:30)
[2016-09-28] MEDS ORDERED: BACT800T5 PO (13:37)
== END 2016-09-28 13:43 | disposition home or self-care (01) ==
LOC: M ED 11:48
DX: R10.9 Unspecified abdominal pain (principal); R11.2 Nausea with vomiting, unspecified; E03.9 Hypothyroidism, unspecified; F33.9 Major depressive disorder, recurrent, unspecified; Z79.51 Long term (current) use of inhaled steroids; Z79.899 Other long term (current) drug therapy; Z88.8 Allergy status to other drugs, medicaments and biological substances; Z91.040 Latex allergy status
CPT/HCPCS: 80048; 81000; 87086; 96374; 96375; 99282; J1885; J2405

== ENCOUNTER 2019-05-18 12:51 | Inpatient (IN) | payer MEDICAID, MEDICARE ==
[~2019-05-18] VITALS: Ht 154.9 cm; Wt 62.7 kg
[~2019-05-18 12:51] MED LIST changes: +ADDE1TAB14 PO; -ADDE30CA PO; +ADDE30CA3 PO; -ADDE5TAB5 PO; +BACT800T5 PO; +CIPR-249 PO; -EFFE150C PO; +EFFE150C2 PO; +EFFE75CA2 PO; -EFFE75CA75 PO; +FLOM0.4C39 PO; -FLOM5CAP PO; +HYDR-3715 PO; -NORCOTAB PO; +PERC5TAB12 PO; -SENO8.6T2 PO; +SENO8.6T5 PO; +TRAZ-252 PO; -TRAZ50TA4 PO; +ZOFR4TAB14 PO; -ZOFR4TAB3 PO
[2019-05-18] MEDS ORDERED: NS 1,000 ML IV ONE (13:30)
[2019-05-18] MEDS ORDERED: KETOROLAC 30 MG/ML VIAL (J1885) IV ONE (13:30)
[2019-05-18] MEDS ORDERED: ONDANSETRON 4MG/2ML VIAL (J2405) IV ONE (13:30)
[2019-05-18 14:09] LABS: BASO % 0.5 % (0.0-1.0); EOS # 0.1 10^3/uL (0.0-0.5); EOS % 1.1 % (0.0-3.0); HEMATOCRIT 37.6 % (36.0-47.0); LYMPH # 2.3 10^3/uL (1.5-5.0); LYMPH % 30.9 % (24.0-44.0); MEAN CORPUSCULAR HGB CONC 31.9 g/dl (32.0-36.5); MEAN CORPUSCULAR VOLUME 90.8 fl (80.0-96.0); MONO # 0.8 10^3/uL (0.0-0.8); NEUTROPHILS # 4.3 10^3/uL (1.5-8.5); NEUTROPHILS % 57.4 % (36.0-66.0); PLATELET COUNT, AUTOMATED 228 10^3/uL (150-450); RED BLOOD COUNT 4.14 10^6/uL (4.00-5.40); WHITE BLOOD COUNT 7.6 10^3/uL (4.0-10.0)
[2019-05-18] MEDS ORDERED: VENTAER INH (14:16)
[2019-05-18] MEDS ORDERED: NON-325T5 PO (14:16)
[2019-05-18] MEDS ORDERED: AZIT-12 PO (14:16)
[2019-05-18 14:34] LABS: ALBUMIN 3.2 GM/DL (3.2-5.2); ALT/SGPT 11 U/L (12-78); BILIRUBIN,DIRECT < 0.1 MG/DL (0.0-0.2); BILIRUBIN,TOTAL 0.2 MG/DL (0.2-1.0); LIPASE 64 U/L (73-393); TOTAL PROTEIN 6.3 GM/DL (6.4-8.2)
--- NOTE | 2019-05-18 15:00 | REP ---
Two-view chest: 05/18/2019. Indication: Epigastric pain. Comparison: 02/24/2009. Findings: Air space consolidation of the left lower lobe is present. There is no significant pleural effusion. There is no pneumothorax. The cardiomediastinal silhouette is unremarkable. Impression: Left lower lobe pneumonia. Electronically Signed by Leonard Calloway DO 05/18/2019 02:52 P
[2019-05-18] MEDS ORDERED: LevoFLOXacin IV 750 MG in IV 1 EA IV ONE (15:45)
[2019-05-18] MEDS ORDERED: FLON1SPR NARES (17:08)
[2019-05-18] MEDS ORDERED: ACETAMINOPHEN 325 MG TAB PO PRN (17:45)
--- NOTE | 2019-05-18 17:54 | HPEPDOC ---
[facility] Medical History & Physical Date of Admission May 18, 2019 Date of Service: May 18, 2019 Attending Physician: SUN LOJA MD History and Physical CHIEF COMPLAINT: L flank pain HISTORY OF PRESENT ILLNESS: 38 y.o female w/ PMH of sleeve gastrectomy, Hypothyroidism & recurrent renal calculi presents with L flank pain. Her symptoms started three weeks ago with dizziness, progressed to malaise with fever, chills & sweats over the past few days. She went to [facility] ED, was found to have L sided hydronephrosis, diagnosed with LLL pneumonia and was sent home on Zithromax & albuterol. She presented to our ED today because her symptoms kept worsening, especially fever, flank pain & sweats. She was initially experiencing polyuria but reports decreased urine output for the past 24 hours. She also reports cough for the past few days which has also been presents in her relatives & kids at home. She denies any chest pain, nausea, vomiting abdominal pain or diarrhea at this time. 10 point review of system is negative except for above. PAST MEDICAL HISTORY: 1. Obesity 2. Hypothyroidism 3. recurrent renal calculi PAST SURGICAL HISTORY: 1. sleeve gastrectomy 2. L urteral stent SOCIAL HISTORY: ex-smoker, quit 1 month ago social alcohol use denies drug use FAMILY HISTORY: father w/ lung disease ALLERGIES: Please see below. HOME MEDICATIONS: Please see below. PHYSICAL EXAMINATION: VITAL SIGNS: see below GENERAL APPEARANCE: no distress HEENT: normocephalic, atraumatic CARDIOVASCULAR: S1, S2, no murmurs LUNGS: LLL crackles appreciated ABDOMEN: soft, non-tender, non-distended, +BS EXTREMITIES: ROM intact NEUROLOGICAL: no focal deficits PSYCHIATRIC: calm & cooperative LABORATORY DATA: See below. IMAGING: CXR w/ LLL opacity MICROBIOLOGY: Please see below. ASSESSMENT: 38 y.o female w/ PMH of sleeve gastrectomy, Hypothyroidism & recurrent renal calculi presents with L flank pain & recent imaging w/ L hydronephrosis. PLAN: 1. Flank pain - concerning for obstructive uropathy w/ Pyelonephritis given patient's history & presentation, CT abdomen ordered, ceftriaxone, cultures pending, will consult Urology based on CT results, NPO for now, IV fluids, pain control. - check respiratory viral panel given sick contacts & LLL lesion, CT should also be able to assess LLL 2. Hypothyroidism - continue Levothyroxine DVT Prophylaxis - TEDs GI Prophylaxis - not needed Vital Signs Vital Signs Date Time Temp Pulse Resp B/P (MAP) Pulse Ox O2 Delivery O2 Flow Rate FiO2 05/18/19 13:14 Room Air 05/18/19 13:08 05/18/19 12:52 99.0 81 18 99 Laboratory Data Labs 24H Laboratory Tests 2 05/18/19 13:38: POC Glucose (Misc Panel) 89, POC Sodium (Misc Panel) 140, POC Potassium (Misc Panel) 3.9, POC Chloride (Misc Panel) 104, POC Total CO2 (Misc Panel) 27.0, POC Blood Urea Nitrogen (Misc Panel 9, POC Ionized Calcium (Misc Panel) 4.7, POC Creatinine (Misc Panel) 0.5L, POC Hematocrit (Misc Panel) 38.0 05/18/19 13:47: Immature Granulocyte % (Auto) 0.1, Neutrophils (%) (Auto) 57.4, Lymphocytes (%) (Auto) 30.9, Monocytes (%) (Auto) 10.0H, Eosinophils (%) (Auto) 1.1, Basophils (%) (Auto) 0.5, Neutrophils # (Auto) 4.3, Lymphocytes # (Auto) 2.3, Monocytes # (Auto) 0.8, Eosinophils # (Auto) 0.1, Basophils # (Auto) 0.0, Nucleated Red Blood Cells % (auto) 0.0, Total Bilirubin 0.2, Direct Bilirubin < 0.1, Aspartate Amino Transf (AST/SGOT) 5L, Alanine Aminotransferase (ALT/SGPT) 11L, Alkaline Phosphatase 47, Total Protein 6.3L, Albumin 3.2, Albumin/Globulin Ratio 1.03, Lipase 64L 05/18/19 13:59: POC Beta HCG, Quantitative < 5.0 05/18/19 15:30: Urine Color YELLOW, Urine Appearance CLEAR, Urine pH 6.0, Urine Specific [place] 1.016, Urine Protein NEGATIVE, Urine Glucose (UA) NEGATIVE, Urine Ketones NEGATIVE, Urine Blood 3+H, Urine Nitrite NEGATIVE, Urine Bilirubin NEGATIVE, [place] ne Urobilinogen 0.2, Urine Leukocyte Esterase NEGATIVE, Urine WBC (Auto) 1, Urine RBC (Auto) 73H, Urine Hyaline Casts (Auto) 0, Urine Bacteria (Auto) NEGATIVE, Urine Squamous Epithelial Cells 0, Urine Mucus (Auto) SMALL, Urine Sperm (Auto) , Lactic Acid Level 0.9 CBC/BMP Laboratory Tests 05/18/19 13:47 Microbiology Microbiology 05/18/19 Blood Culture, Received Pending Home Medications Scheduled Azithromycin (Azithromycin) 250 Mg Tablet, 250 MG PO DAILY STARTED 05/17 FOR 5 DAYS Fluticasone Propionate (Flonase Allergy Relief) 9.9 [address] [place].susp, 2 SPRAY NARES DAILY Levothyroxine Sodium (Levothyroxine Sodium) 75 Mcg Tab, 75 MCG PO DAILY Scheduled PRN Acetaminophen (Acetaminophen) 325 Mg Tablet, 2 TAB PO Q4H PRN for PAIN Albuterol Sulfate (Ventolin Hfa) 18 Gm Hfa.aer.ad, 2 PUFFS INH Q4H PRN for SOB/WHEEZING Allergies Coded Allergies: latex (Verified Allergy, Mild, ITCHING, 05/18/19) ziprasidone (Verified Adverse Reaction, Intermediate, DECREASED HEART RATE, 05/18/19) A-FIB/CHADSVASC A-FIB History Current/History of A-Fib/PAF?: No SUN LOJA MD May 18, 2019 17:54
[2019-05-18] MEDS ORDERED: cefTRIAXone SOD 2 GM in D5W MINI-BAG PLUS 50 ML IV SCH (18:00)
[2019-05-18] MEDS: MORPHINE 2 MG/ML 1ML VIAL (J2270) IV PRN (18:10)
[2019-05-18] MEDS: NS 1,000 ML IV SCH (18:18)
--- NOTE | 2019-05-18 19:39 | REPVR ---
PROCEDURE INFORMATION: Exam: CT Abdomen And Pelvis Without Contrast Exam date and time: 05/18/2019 6:41 PM Age: 38 years old Clinical indication: Abdominal pain; Additional info: L flank pain, concern about hydro TECHNIQUE: Imaging protocol: Computed tomography of the abdomen and pelvis without contrast. Radiation optimization: All CT scans at this facility use at least one of these dose optimization techniques: automated exposure control; mA and/or kV adjustment per patient size (includes targeted exams where dose is matched to clinical indication); or iterative reconstruction. COMPARISON: CT ABD PELVIS W/O CONTRAST 09/24/2016 11:32 AM FINDINGS: Lungs: There is consolidation with air bronchogram in the left lower lobe. Liver: Normal. No mass. Gallbladder and bile ducts: No calcified stones. Pancreas: Poorly assessed. Spleen prominent but stable. Adrenals: Poorly assessed. Kidneys and ureters: There is a 3 mm calculus in the left kidney. There are multiple calculi in the right kidney. No obvious calculi are seen in the expected course of the ureters or the ureters are not well-visualized. No obvious hydronephrosis. Stomach and bowel: There is been gastric surgery in comparison to a 09/24/2016 CT. No intestinal obstruction. Appendix: No evidence of appendicitis. Intraperitoneal space: Unremarkable. No free air. No significant fluid collection. Vasculature: Abdominal aorta is poorly assessed. Lymph nodes: Unremarkable. No enlarged lymph nodes. Bladder: Unremarkable as visualized. Reproductive: Uterus and adnexa are not well assessed. Punctate calcifications in region of right adnexa. Bones/joints: Unremarkable. No acute fracture. Soft tissues: Unremarkable. IMPRESSION: 1. Although there are bilateral renal calculi there is no definite evidence of hydronephrosis however the kidneys are poorly evaluated on this noncontrast study. 2. The patient's left-sided pain may be due to consolidation in the left lower lobe likely due to pneumonia although a Wadsworth's hump could also have this appearance. Electronically signed by: Mercedes Tinoco On 05/18/2019 19:39:07 PM
[2019-05-18 22:00] VITALS: BP 107/70
[2019-05-19] MEDS: PIPERACILLIN/TAZOBACTAM SOD 3.375 GM in D5W MINI-BAG PLUS 50 ML IV SCH ×4 (00:51→17:29)
[2019-05-19] MEDS: MORPHINE 2 MG/ML 1ML VIAL (J2270) IV PRN (03:25)
[2019-05-19] MEDS: NS 1,000 ML IV SCH (03:26)
[2019-05-19] MEDS: LEVOTHYROXINE 75MCG TABLET (0.075MG) PO SCH (05:57)
[2019-05-19 06:00] VITALS: BP 111/72
[2019-05-19 06:08] LABS: HEMATOCRIT 33.9 % (36.0-47.0); HEMOGLOBIN 10.8 g/dl (12.0-15.5); MEAN CORPUSCULAR HGB CONC 31.9 g/dl (32.0-36.5); MEAN CORPUSCULAR VOLUME 90.9 fl (80.0-96.0); PLATELET COUNT, AUTOMATED 199 10^3/uL (150-450); RED BLOOD COUNT 3.73 10^6/uL (4.00-5.40); WHITE BLOOD COUNT 5.3 10^3/uL (4.0-10.0)
[2019-05-19 06:36] LABS: ALBUMIN 2.7 GM/DL (3.2-5.2); ALT/SGPT 9 U/L (12-78); BILIRUBIN,TOTAL 0.2 MG/DL (0.2-1.0); BLOOD UREA NITROGEN 7 MG/DL (7-18); CALCIUM LEVEL 8.1 MG/DL (8.5-10.1); CARBON DIOXIDE LEVEL 24 MEQ/L (21-32); CHLORIDE LEVEL 112 MEQ/L (98-107); CREATININE FOR GFR 0.48 MG/DL (0.55-1.30); GLOMERULAR FILTRATION RATE > 60.0 (>60); GLUCOSE, FASTING 81 MG/DL (70-100); MAGNESIUM LEVEL 1.8 MG/DL (1.8-2.4); POTASSIUM SERUM 3.6 MEQ/L (3.5-5.1); SODIUM LEVEL 142 MEQ/L (136-145)
[2019-05-19] MEDS ORDERED: POTASSIUM CHLORIDE 10 MEQ SR TABLET PO ONE (10:00)
[2019-05-19] MEDS ORDERED: MAG SULF 1GM/100ML (MAG RUN) 1 GM in IV 1 EA IV ONE (10:00)
[2019-05-19] MEDS: PERCOCET 5MG/325MG TAB PO PRN ×2 (11:30→18:23)
--- NOTE | 2019-05-19 13:58 | REP ---
RENAL ULTRASOUND: Real-time sonographic evaluation of the kidneys performed. The kidneys are normal in size and echotexture, right kidney measuring 10.9 x 5.5 x 3.4 cm and left kidney 11.1 x 5.2 x 6.4 cm. There is no hydronephrosis bilaterally. A few tiny echogenic foci are seen in the right upper pole collecting system with a 6 mm focus in the lower pole collecting system of the right kidney likely representing a calculus. There appears to be a 4 mm calculus in the mid left renal collecting system. Urinary bladder measures 11.0 x 9.8 x 4 cm for a total volume of 515 mL. There are bilateral ureteral jets in the urinary bladder with Doppler color evaluation. IMPRESSION: Subcentimeter intrarenal calculi without hydronephrosis. Electronically Signed by Alexsander Villarreal MD 05/19/2019 05:13 P
[2019-05-19 14:00] VITALS: BP 99/61
--- NOTE | 2019-05-19 20:22 | IPNPDOC ---
Date Seen The patient was seen on 05/19/19. Progress Note HISTORY OF PRESENT ILLNESS: 38 y.o female w/ PMH of sleeve gastrectomy, Hypothyroidism & recurrent renal calculi presents with L flank pain. Her symptoms started three weeks ago with dizziness, progressed to malaise with fever, chills & sweats over the past few days. She went to [place] ED, was found to have L sided hydronephrosis, diagnosed with LLL pneumonia and was sent home on Zithromax & albuterol. She presented to our ED today because her symptoms kept worsening, especially fever, flank pain & sweats. She was initially experiencing polyuria but reports decreased urine output for the past 24 hours. She also reports cough for the past few days which has also been presents in her relatives & kids at home. She denies any chest pain, nausea, vomiting abdominal pain or diarrhea at this time. 05/19/19 Afebrile overnight, continues to have back pain but improved from yesterday, req uiring less pain control, improvement in cough/chills as well, no new complaints. She denies any chest pain, nausea, vomiting, abdominal pain or diarrhea. 10 point review of system is negative except for above. PHYSICAL EXAMINATION: VITAL SIGNS: see below GENERAL APPEARANCE: no distress HEENT: normocephalic, atraumatic CARDIOVASCULAR: S1, S2, no murmurs LUNGS: LLL crackles appreciated ABDOMEN: soft, non-tender, non-distended, +BS EXTREMITIES: ROM intact NEUROLOGICAL: no focal deficits PSYCHIATRIC: calm & cooperative LABORATORY DATA: See below. IMAGING: CT w/ LLL consolidation, no hydronephrosis appreciated MICROBIOLOGY: Please see below. ASSESSMENT: 38 y.o female w/ PMH of sleeve gastrectomy, Hypothyroidism & recurrent renal calculi is admitted for Pneumonia. PLAN: 1. Pneumonia - CT w/ LLL consolidation, continue Zosyn, no hydronephrosis noted on CT, afebrile overnight, significant improvement in clinical symptoms, continue pain control. 2. Hypothyroidism - continue Levothyroxine DVT Prophylaxis - TEDs GI Prophylaxis - not needed VS, I&O, 24H, Fishbone Vital Signs/I&O Vital Signs Date Time Temp Pulse Resp B/P (MAP) Pulse Ox O2 Delivery O2 Flow Rate FiO2 05/19/19 18:55 16 05/19/19 14:00 97.5 75 99/61 (74) 100 05/18/19 22:00 Room Air I&O- Last 24 Hours up to 6 AM 05/19/19 06:00 Intake Total 2750 ml Balance 2750 ml Laboratory Data 24H LABS Laboratory Tests 2 05/19/19 05:27: Nucleated Red Blood Cells % (auto) 0.0, Anion Gap 6L, Glomerular Filtration Rate > 60.0, Calcium Level 8.1L, Magnesium Level 1.8, Total Bilirubin 0.2, Aspartate Amino Transf (AST/SGOT) 7, Alanine Aminotransferase (ALT/SGPT) 9L, Alkaline Phosphatase 37L, Total Protein 6.0L, Albumin 2.7L, Albumin/Globulin Ratio 0.82L CBC/BMP Laboratory Tests 05/19/19 05:27 Microbiology Microbiology 05/18/19 Respiratory Virus Panel (PCR) ([facility]) - Final, Complete 05/18/19 Blood Culture - Preliminary, Resulted No growth after 24 hours . All specim... 05/18/19 Blood Culture - Preliminary, Resulted No growth after 24 hours . All specim... SUN LOJA MD May 19, 2019 20:22
[2019-05-19 22:00] VITALS: BP 90/76
[2019-05-20] MEDS: PIPERACILLIN/TAZOBACTAM SOD 3.375 GM in D5W MINI-BAG PLUS 50 ML IV SCH ×2 (00:07→05:57)
[2019-05-20] MEDS: LEVOTHYROXINE 75MCG TABLET (0.075MG) PO SCH (05:32)
[2019-05-20] MEDS: PERCOCET 5MG/325MG TAB PO PRN ×2 (05:32→11:40)
[2019-05-20 06:00] VITALS: BP 103/50
[2019-05-20 06:10] LABS: HEMATOCRIT 34.3 % (36.0-47.0); HEMOGLOBIN 11.1 g/dl (12.0-15.5); MEAN CORPUSCULAR HEMOGLOBIN 29.1 pg (27.0-33.0); MEAN CORPUSCULAR HGB CONC 32.4 g/dl (32.0-36.5); MEAN CORPUSCULAR VOLUME 89.8 fl (80.0-96.0); PLATELET COUNT, AUTOMATED 231 10^3/uL (150-450); RED BLOOD COUNT 3.82 10^6/uL (4.00-5.40); WHITE BLOOD COUNT 5.2 10^3/uL (4.0-10.0)
[2019-05-20 06:33] LABS: BLOOD UREA NITROGEN 10 MG/DL (7-18); CALCIUM LEVEL 8.4 MG/DL (8.5-10.1); CARBON DIOXIDE LEVEL 27 MEQ/L (21-32); CHLORIDE LEVEL 110 MEQ/L (98-107); CREATININE FOR GFR 0.59 MG/DL (0.55-1.30); GLOMERULAR FILTRATION RATE > 60.0 (>60); GLUCOSE, FASTING 79 MG/DL (70-100); MAGNESIUM LEVEL 2.1 MG/DL (1.8-2.4); PHOSPHORUS LEVEL 3.7 MG/DL (2.5-4.9); POTASSIUM SERUM 3.9 MEQ/L (3.5-5.1); SODIUM LEVEL 142 MEQ/L (136-145)
[2019-05-20] MEDS ORDERED: LEVA750T7 PO (10:28)
[2019-05-20] MEDS ORDERED: PERCOCET PO (12:18)
--- NOTE | 2019-05-20 15:57 | DS.PDOC ---
Discharge Summary General Date of Admission May 18, 2019 at 17:33 Date of Discharge 05/20/19 Attending Physician: SNU LOJA MD Discharge Summary PROCEDURES PERFORMED DURING STAY: None ADMITTING DIAGNOSES: 1. Pneumonia DISCHARGE DIAGNOSES: 1. Pneumonia COMPLICATIONS/CHIEF COMPLAINT: Flank Pain;Hx Of Sleeve Gastrectomy;Hydronephrosis. HISTORY OF PRESENT ILLNESS: 38 y.o female w/ PMH of sleeve gastrectomy & recurrent renal calculi was admitted for LLL pneumonia. She was treated w/ IV antibiotics with significant clinical improvement, she is has remained afebrile for >48 hours, ambulating without difficulty and having significant improvement in back pain. She will be discharged on Levaquin to complete her antibiotic course. She is advised to return to the ED or call her PCP if fever, chills or sweats recur and/or if her cough/dyspnea worsens. She is clinically and hemodynamically stable for discharge and outpatient follow up. HOSPITAL COURSE: as above DISCHARGE MEDICATIONS: Please see below. ALLERGIES: Please see below. PHYSICAL EXAMINATION: VITAL SIGNS: see below GENERAL APPEARANCE: no distress HEENT: normocephalic, atraumatic CARDIOVASCULAR: S1, S2, no murmurs LUNGS: LLL crackles appreciated ABDOMEN: soft, non-tender, non-distended, +BS EXTREMITIES: ROM intact NEUROLOGICAL: no focal deficits PSYCHIATRIC: calm & cooperative LABORATORY DATA: Please see below. IMAGING: CT w/ LLL pneumonia PROGNOSIS: good ACTIVITY: As tolerated DIET: regular DISCHARGE PLAN: f/u with PCP in 1-2 weeks DISPOSITION: 01 Home, Self-Care. DISCHARGE INSTRUCTIONS: 1. as above DISCHARGE CONDITION: Stable TIME SPENT ON DISCHARGE: Greater than 33 minutes. Vital Signs/I&Os Vital Signs Date Time Temp Pulse Resp B/P (MAP) Pulse Ox O2 Delivery O2 Flow Rate FiO2 05/20/19 12:10 16 05/20/19 06:00 98.8 60 103/50 (67) 98 Room Air I&O- Last 24 Hours up to 6 AM 05/20/19 05:59 Intake Total 2960 ml Output Total 1600 ml Balance 1360 ml Laboratory Data Labs 24H Laboratory Tests 2 05/20/19 05:19: Nucleated Red Blood Cells % (auto) 0.0, Anion Gap 5L, Glomerular Filtration Rate > 60.0, Calcium Level 8.4L, Phosphorus Level 3.7, Magnesium Level 2.1 CBC/BMP Laboratory Tests 05/20/19 05:19 Microbiology Microbiology 05/18/19 Respiratory Virus Panel (PCR) ([facility]) - Final, Complete 05/18/19 Blood Culture - Preliminary, Resulted No growth after 24 hours . All specim... 05/18/19 Blood Culture - Preliminary, Resulted No growth after 24 hours . All specim... Discharge Medications Scheduled Fluticasone Propionate (Flonase Allergy Relief) 9.9 Ml [place].susp, 2 SPRAY NARES DAILY, (Reported) Levofloxacin (Levaquin) 750 Mg Tablet, 1 TAB PO DAILY Levothyroxine Sodium (Levothyroxine Sodium) 75 Mcg Tab, 75 MCG PO DAILY, (Reported) Scheduled PRN Acetaminophen (Acetaminophen) 325 Mg Tablet, 2 TAB PO Q4H PRN for PAIN, (Reported) Albuterol Sulfate (Ventolin Hfa) 18 Gm Hfa.aer.ad, 2 PUFFS INH Q4H PRN for SOB/WHEEZING, (Reported) Oxycodone/Acetaminophen (Oxycodone-Acetaminophen 5-325) 1 Each Tablet, 1 TAB PO Q6HP PRN for MILD/MODERATE PAIN (PS 1-7) Allergies Coded Allergies: latex (Verified Allergy, Mild, ITCHING, 05/18/19) ziprasidone (Verified Adverse Reaction, Intermediate, DECREASED HEART RATE, 05/18/19) SUN LOJA MD May 20, 2019 15:57
== END 2019-05-20 13:21 | disposition home or self-care (01) | DRG 195 ==
LOC: M ED 12:51 → M ED INP 17:33 → M MSPAV 19:55
PROVIDERS: ADMIT Internal Medicine; ATTEND Internal Medicine
DX: J18.9 Pneumonia, unspecified organism (principal); Z91.040 Latex allergy status; Z88.8 Allergy status to other drugs, medicaments and biological substances; Z79.899 Other long term (current) drug therapy; E66.9 Obesity, unspecified; E03.9 Hypothyroidism, unspecified; Z87.891 Personal history of nicotine dependence; Z87.442 Personal history of urinary calculi

== ENCOUNTER → 2019-06-28 | Outpatient (CLI) | payer MEDICARE, MEDICAID ==
[~2019-06-28] MED LIST changes: +AZIT-12 PO; +FLON1SPR NARES; +LEVA750T7 PO; +NON-325T5 PO; +PERCOCET PO; +VENTAER INH
--- NOTE | 2019-06-29 07:46 | REP ---
SACRUM AND COCCYX: Three view of the sacrum and coccyx are performed. No definite fracture or dislocation is seen. Lateral view is somewhat oblique, which limits the exam. There is partial sacralization of L5 on the left. IMPRESSION: No definite fracture or dislocation. Electronically Signed by Alexsander Villarreal MD 06/29/2019 10:36 P
== END ==
LOC: M LRY 16:35
PROVIDERS: ATTEND Physician Assistant
DX: S39.92XA Unspecified injury of lower back, initial encounter (principal); W00.9XXA Unspecified fall due to ice and snow, initial encounter; Y92.9 Unspecified place or not applicable
CPT/HCPCS: 72220; G0463

== ENCOUNTER 2020-03-20 13:57 | Emergency (ER) | payer BC, MEDICAID, MEDICARE, SELFPAY ==
[~2020-03-20] VITALS: Ht 154.9 cm; Wt 67.7 kg
[2020-03-20 14:49] LABS: BASO # 0.1 10^3/uL (0.0-0.2); BASO % 0.6 % (0.0-1.0); EOS # 0.1 10^3/uL (0.0-0.5); EOS % 1.3 % (0.0-3.0); HEMATOCRIT 37.4 % (36.0-47.0); HEMOGLOBIN 11.7 g/dl (12.0-15.5); LYMPH # 3.1 10^3/uL (1.5-5.0); MEAN CORPUSCULAR HEMOGLOBIN 28.5 pg (27.0-33.0); MEAN CORPUSCULAR HGB CONC 31.3 g/dl (32.0-36.5); MEAN CORPUSCULAR VOLUME 91.2 fl (80.0-96.0); MONO # 0.6 10^3/uL (0.0-0.8); MONO % 6.8 % (0.0-5.0); NEUTROPHILS # 5.4 10^3/uL (1.5-8.5); PLATELET COUNT, AUTOMATED 287 10^3/uL (150-450); WHITE BLOOD COUNT 9.3 10^3/uL (4.0-10.0)
[2020-03-20 15:14] LABS: BLOOD UREA NITROGEN 14 MG/DL (7-18); CALCIUM LEVEL 8.7 MG/DL (8.5-10.1); CARBON DIOXIDE LEVEL 28 MEQ/L (21-32); CHLORIDE LEVEL 107 MEQ/L (98-107); CREATININE FOR GFR 0.63 MG/DL (0.55-1.30); GLOMERULAR FILTRATION RATE > 60.0 (>60); GLUCOSE, FASTING 96 MG/DL (70-100); POTASSIUM SERUM 3.7 MEQ/L (3.5-5.1); SODIUM LEVEL 142 MEQ/L (136-145)
[2020-03-20 15:15] LABS: HCG, SERUM QUALITATIVE NEGATIVE (NEGATIVE)
[2020-03-20] MEDS ORDERED: NS 1,000 ML IV ONE (16:45)
--- NOTE | 2020-03-20 18:10 | REPVR ---
PROCEDURE INFORMATION: Exam: US Pelvis Complete, Transabdominal and US Pelvis, Transvaginal Exam date and time: 03/20/2020 6:01 PM Age: 39 years old Clinical indication: Pelvic pain; Additional info: Heavy vaginal bleeding TECHNIQUE: Imaging protocol: Real-time transabdominal and transvaginal pelvic ultrasound (complete) with image documentation. Transvaginal imaging was used for better evaluation of the endometrium, adnexa, and/or cervix. COMPARISON: CT ABD PELVIS W/O CONTRAST 05/18/2019 6:39 PM FINDINGS: Uterus/cervix: Uterus 7.9 x 3.2 x 4.1 cm transabdominally; 6.8 x 3.5 x 5.1 cm transvaginally. Hypoechoic anterior right uterine corporal 8.3 mm leiomyoma. Endometrium 4.9 mm transabdominally; 4.2 mm transvaginally. Right adnexa: Right ovary 2.9 x 2.3 x 2.0 cm transabdominally; 2.0 x 2.7 x 1.7 cm transvaginally. Nonshadowing slightly hypoechoic 1.5 x 1.3 x 1.3 cm right ovarian homogeneous round focus without definite color Doppler blood flow (shifts present are felt to represent low velocity motion artifact). Left adnexa: Left ovary 1.4 x 3.2 x 2.1 cm transabdominally; 1.6 x 2.0 x 1.3 cm transvaginally. Normal arterial and venous blood flow. No mass or cyst.. Intraperitoneal space: No intraperitoneal free fluid. Urinary bladder: Normal. IMPRESSION: Right ovarian hemorrhagic follicle. Electronically signed by: Tano Brunson On 03/20/2020 18:09:55 PM
[2020-03-20 18:52] VITALS: BP 128/84
== END 2020-03-20 18:57 | disposition home or self-care (01) ==
LOC: M ED 13:57
DX: N92.0 Excessive and frequent menstruation with regular cycle (principal); F17.200 Nicotine dependence, unspecified, uncomplicated; Z79.51 Long term (current) use of inhaled steroids; Z79.891 Long term (current) use of opiate analgesic; Z79.899 Other long term (current) drug therapy; Z91.040 Latex allergy status; Z88.8 Allergy status to other drugs, medicaments and biological substances

== ENCOUNTER → 2020-07-24 | Outpatient (CLI) | payer BC ==
[~2020-07-24] MED LIST changes: +ACET-838 PO; -NON-325T5 PO
--- NOTE | 2020-07-24 18:12 | REPVR ---
PROCEDURE INFORMATION: Exam: CT Maxillofacial Without Contrast, Sinus Exam date and time: 07/24/2020 5:43 PM Age: 39 years old Clinical indication: Sinusitis; Chronic; Additional info: Chronic maxillary sinusitis TECHNIQUE: Imaging protocol: CT Maxillofacial without contrast. Focus on the sinuses. Radiation optimization: All CT scans at this facility use at least one of these dose optimization techniques: automated exposure control; mA and/or kV adjustment per patient size (includes targeted exams where dose is matched to clinical indication); or iterative reconstruction. COMPARISON: No relevant prior studies available. FINDINGS: Frontal sinuses: Normal. No air-fluid levels. Ethmoid air cells: Normal. No air-fluid levels. Sphenoid sinuses: Normal. No air-fluid levels. Maxillary sinuses: Normal. No air-fluid levels. Ostiomeatal units are patent. Nasal cavity/Septum: Unremarkable. Orbital cavity: Orbits are normal. Globes are unremarkable. Bones/joints: Unremarkable. Soft tissues: Unremarkable. IMPRESSION: Unremarkable sinuses. Electronically signed by: Yifan Carolina On 07/24/2020 18:13:08 PM
== END ==
LOC: M RAD 17:32
PROVIDERS: ATTEND Otolaryngology
DX: J32.0 Chronic maxillary sinusitis (principal)

== ENCOUNTER → 2021-04-05 | Outpatient (REF) | payer BC ==
[~2021-04-05] MED LIST changes: -ACET-838 PO; +ACET32TAB PO
[2021-04-05 17:17] LABS: BASO # 0.1 10^3/uL (0.0-0.2); BASO % 0.6 % (0.0-1.0); EOS # 0.1 10^3/uL (0.0-0.5); EOS % 0.7 % (0.0-3.0); HEMATOCRIT 38.8 % (36.0-47.0); HEMOGLOBIN 12.2 g/dl (12.0-15.5); LYMPH % 24.7 % (24.0-44.0); MEAN CORPUSCULAR HEMOGLOBIN 27.5 pg (27.0-33.0); MEAN CORPUSCULAR HGB CONC 31.4 g/dl (32.0-36.5); MEAN CORPUSCULAR VOLUME 87.6 fl (80.0-96.0); MONO # 0.8 10^3/uL (0.0-0.8); MONO % 6.3 % (2.0-8.0); NEUTROPHILS # 8.2 10^3/uL (1.5-8.5); NEUTROPHILS % 67.3 % (36.0-66.0); PLATELET COUNT, AUTOMATED 348 10^3/uL (150-450); RED BLOOD COUNT 4.43 10^6/uL (4.00-5.40); WHITE BLOOD COUNT 12.2 10^3/uL (4.0-10.0)
[2021-04-05 17:35] LABS: APPEARANCE, URINE CLEAR (CLEAR); BACTERIA, URINE AUTO NEGATIVE (NEGATIVE); BILIRUBIN, URINE AUTO NEGATIVE (NEGATIVE); BLOOD, URINE BLOOD 2+ (NEGATIVE); COLOR, URINE YELLOW (YELLOW); GLUCOSE, URINE (UA) AUTO NEGATIVE (NEGATIVE); KETONE, URINE AUTO NEGATIVE (NEGATIVE); LEUKOCYTE ESTERASE, URINE AUTO NEGATIVE (NEGATIVE); NITRITE, URINE AUTO NEGATIVE (NEGATIVE); PROTEIN, URINE AUTO NEGATIVE (NEGATIVE); RBC, URINE AUTO 4 /HPF (0-3); SPECIFIC GRAVITY URINE AUTO 1.008 (1.002-1.035); SQUAMOUS EPITHELIAL CELL UR AU 0 /HPF (0-6); UROBILINOGEN, URINE AUTO 0.2 mg/dL (0.0-2.0); WBC, URINE AUTO 0 /HPF (0-3)
[2021-04-05 17:44] LABS: CREATININE,RANDOM URINE 57.2 MG/DL; TOTAL PROTEIN,RANDOM URINE < 5.0 MG/DL (0.0-12.0)
[2021-04-05 17:45] LABS: ALBUMIN 3.9 GM/DL (3.2-5.2); ALT/SGPT 17 U/L (12-78); BILIRUBIN,TOTAL 0.4 MG/DL (0.2-1.0); BLOOD UREA NITROGEN 9 MG/DL (7-18); C REACTIVE PROTEIN QUANTITATIV 0.44 MG/DL (0.00-0.30); CALCIUM LEVEL 8.9 MG/DL (8.5-10.1); CARBON DIOXIDE LEVEL 27 MEQ/L (21-32); CHLORIDE LEVEL 109 MEQ/L (98-107); COMPLEMENT C3 88 MG/DL (90-180); COMPLEMENT C4 23 MG/DL (10-40); CPK CREATINE PHOSPHOKINASE 60 U/L (26-192); CREATININE FOR GFR 0.62 MG/DL (0.55-1.30); GLOMERULAR FILTRATION RATE > 60.0 (>60); GLUCOSE, FASTING 85 MG/DL (70-100); LDH LACTATE DEHYDROGENASE 134 U/L (84-246); POTASSIUM SERUM 3.6 MEQ/L (3.5-5.1); SODIUM LEVEL 139 MEQ/L (136-145); TOTAL PROTEIN 7.4 GM/DL (6.4-8.2)
[2021-04-05 18:21] LABS: ERYTHROCYTE SEDIMENTATION RATE 12 mm/hr (0-20)
== END ==
LOC: M SFHCRHEU 14:31
PROVIDERS: ATTEND Internal Medicine Rheumatology
DX: M25.50 Pain in unspecified joint (principal)

== ENCOUNTER 2021-12-25 09:01 | Emergency (ER) | payer BC ==
[~2021-12-25] VITALS: Ht 154.9 cm; Wt 72.7 kg
[2021-12-25 09:01] VITALS: BP 115/82
[2021-12-25] MEDS ORDERED: SUMA25TA3 (09:09)
[2021-12-25] MEDS ORDERED: GI COCKTAIL 50ML BTL(HYOSCYAMINE/MAALOX/LIDOCAINE VISCOUS)(1:3:1) PO ONE (10:30)
[2021-12-25 11:00] LABS: BASO # 0.1 10^3/uL (0.0-0.2); BASO % 1.1 % (0.0-1.0); EOS # 0.1 10^3/uL (0.0-0.5); EOS % 1.1 % (0.0-3.0); HEMATOCRIT 39.9 % (36.0-47.0); HEMOGLOBIN 12.5 g/dl (12.0-15.5); LYMPH # 2.2 10^3/uL (1.5-5.0); LYMPH % 29.7 % (24.0-44.0); MEAN CORPUSCULAR HEMOGLOBIN 26.8 pg (27.0-33.0); MEAN CORPUSCULAR HGB CONC 31.3 g/dl (32.0-36.5); MEAN CORPUSCULAR VOLUME 85.4 fl (80.0-96.0); MONO # 0.5 10^3/uL (0.0-0.8); MONO % 6.5 % (2.0-8.0); NEUTROPHILS # 4.6 10^3/uL (1.5-8.5); NEUTROPHILS % 61.5 % (36.0-66.0); PLATELET COUNT, AUTOMATED 353 10^3/uL (150-450); RED BLOOD COUNT 4.67 10^6/uL (4.00-5.40); WHITE BLOOD COUNT 7.5 10^3/uL (4.0-10.0)
[2021-12-25 11:29] LABS: ALBUMIN 4.1 GM/DL (3.2-5.2); ALT/SGPT 14 U/L (12-78); BILIRUBIN,DIRECT 0.2 MG/DL (0.0-0.2); BILIRUBIN,TOTAL 0.4 MG/DL (0.2-1.0); BLOOD UREA NITROGEN 13 MG/DL (7-18); CALCIUM LEVEL 9.3 MG/DL (8.5-10.1); CARBON DIOXIDE LEVEL 26 MEQ/L (21-32); CHLORIDE LEVEL 108 MEQ/L (98-107); CREATININE FOR GFR 0.72 MG/DL (0.55-1.30); GLOMERULAR FILTRATION RATE > 60.0 (>60); GLUCOSE, FASTING 89 MG/DL (70-100); LIPASE 94 U/L (73-393); POTASSIUM SERUM 4.2 MEQ/L (3.5-5.1); SODIUM LEVEL 140 MEQ/L (136-145); TOTAL PROTEIN 7.8 GM/DL (6.4-8.2)
[2021-12-25] MEDS ORDERED: SIME180C25 PO (12:24)
== END 2021-12-25 12:34 | disposition home or self-care (01) ==
LOC: M ED 09:01
DX: R13.10 Dysphagia, unspecified (principal); R19.5 Other fecal abnormalities; R14.0 Abdominal distension (gaseous); E03.9 Hypothyroidism, unspecified; F43.10 Post-traumatic stress disorder, unspecified; Z88.8 Allergy status to other drugs, medicaments and biological substances; Z91.040 Latex allergy status; Z79.899 Other long term (current) drug therapy; Z79.890 Hormone replacement therapy

== ENCOUNTER → 2022-06-20 | Outpatient (REF) | payer BC ==
[~2022-06-20] MED LIST changes: +SIME180C25 PO; +SUMA25TA3
[2022-06-20 19:13] LABS: HEMOGLOBIN 11.7 g/dl (12.0-15.5); MEAN CORPUSCULAR HEMOGLOBIN 25.7 pg (27.0-33.0); MEAN CORPUSCULAR VOLUME 85.7 fl (80.0-96.0); PLATELET COUNT, AUTOMATED 384 10^3/uL (150-450); RED BLOOD COUNT 4.55 10^6/uL (4.00-5.40); WHITE BLOOD COUNT 6.6 10^3/uL (4.0-10.0)
[2022-06-20 19:28] LABS: ALBUMIN 4.1 G/DL (3.2-5.2); ALKALINE PHOSPHATASE 54 U/L (46-116); ALT/SGPT 23 U/L (7.0-40); AST/SGOT 23 U/L (<34); BILIRUBIN,TOTAL 0.5 MG/DL (0.3-1.2); BLOOD UREA NITROGEN 16 MG/DL (9-23); CALCIUM LEVEL 9.3 MG/DL (8.5-10.1); CARBON DIOXIDE LEVEL 27 MMOL/L (20-31); CHLORIDE LEVEL 103 MMOL/L (98-107); CHOLESTEROL LEVEL 193 MG/DL (<200); CHOLESTEROL RISK RATIO 2.79 (<5); CREATININE FOR GFR 0.61 MG/DL (0.55-1.30); GLOMERULAR FILTRATION RATE > 60.0 (>60); GLUCOSE, FASTING 73 MG/DL (60-100); LDL CHOLESTEROL 111.2 MG/DL (<100); NON-HDL-C 124 MG/DL; POTASSIUM SERUM 4.4 MMOL/L (3.5-5.1); SODIUM LEVEL 140 MMOL/L (136-145); THYROID STIMULATING HORMONE 3.435 uIU/ML (0.55-4.78); TOTAL PROTEIN 7.4 G/DL (5.7-8.2); TRIGLYCERIDES LEVEL 64 MG/DL (<150)
[2022-06-20 19:54] LABS: ERYTHROCYTE SEDIMENTATION RATE 24 mm/hr (0-20)
== END ==
LOC: M LAB REF 16:39
PROVIDERS: ATTEND Physician Assistant
DX: R76.8 Other specified abnormal immunological findings in serum (principal); M79.7 Fibromyalgia; G43.009 Migraine without aura, not intractable, without status migrainosus; E03.9 Hypothyroidism, unspecified

== ENCOUNTER → 2022-08-20 | Outpatient (CLI) | payer BC | LOC: M EKG 09:52 | PROVIDERS: ATTEND Physician Assistant | DX: R23.2 Flushing (principal) ==

== ENCOUNTER → 2022-08-25 | Outpatient (CLI) | payer BC | LOC: M RAD 15:34 → M LAB 15:34 | PROVIDERS: ATTEND Physician Assistant | DX: M25.511 Pain in right shoulder (principal) ==

== ENCOUNTER → 2022-09-08 | Outpatient (CLI) | payer BC ==
[~2022-09-08] MED LIST changes: +FLUT50SP17; -FLUTISP
== END ==
LOC: M RAD 15:14
PROVIDERS: ATTEND Nurse Practitioner Family
DX: N93.9 Abnormal uterine and vaginal bleeding, unspecified (principal); N92.6 Irregular menstruation, unspecified; N84.1 Polyp of cervix uteri

== ENCOUNTER → 2022-09-23 | Outpatient (CLI) | payer BC | LOC: M WHC 15:59 | PROVIDERS: ATTEND Nurse Practitioner Family | DX: Z12.31 Encounter for screening mammogram for malignant neoplasm of breast (principal); Z53.8 Procedure and treatment not carried out for other reasons ==

== ENCOUNTER → 2022-10-31 | Outpatient (REF) | payer BC ==
[2022-10-31 17:14] LABS: RHEUMATOID FACTOR QUANT < 3.5 IU/ML (<14)
[2022-10-31 17:17] LABS: THYROID STIMULATING HORMONE 2.502 uIU/ML (0.55-4.78)
[2022-11-04 20:07] LABS: CYCLIC CITRULLINATED PEPTIDE 4 units (0-19); SSA SJOGRENS A <0.2 AI (0.0-0.9); SSB SJOGRENS B 0.8 AI (0.0-0.9)
== END ==
LOC: M LAB REF 16:21
PROVIDERS: ATTEND Physician Assistant
DX: R23.2 Flushing (principal); H04.123 Dry eye syndrome of bilateral lacrimal glands; R68.2 Dry mouth, unspecified; R76.8 Other specified abnormal immunological findings in serum; M25.50 Pain in unspecified joint; M79.7 Fibromyalgia; E03.9 Hypothyroidism, unspecified

== ENCOUNTER → 2022-12-25 | Outpatient (CLI) | payer BC ==
[2022-12-25 11:50] LABS: ALBUMIN 3.8 G/DL (3.2-5.2); ALKALINE PHOSPHATASE 55 U/L (46-116); ALT/SGPT 9 U/L (7.0-40); AST/SGOT < 8 U/L (<34); BILIRUBIN,TOTAL 0.5 MG/DL (0.3-1.2); BLOOD UREA NITROGEN 14 MG/DL (9-23); CALCIUM LEVEL 9.1 MG/DL (8.5-10.1); CARBON DIOXIDE LEVEL 25 MMOL/L (20-31); CHLORIDE LEVEL 106 MMOL/L (98-107); CREATININE FOR GFR 0.53 MG/DL (0.55-1.30); GLOMERULAR FILTRATION RATE > 60.0 (>58); GLUCOSE, FASTING 76 MG/DL (60-100); POTASSIUM SERUM 3.8 MMOL/L (3.5-5.1); SODIUM LEVEL 141 MMOL/L (136-145); TOTAL PROTEIN 7.1 G/DL (5.7-8.2)
== END ==
LOC: M RAD 10:30
PROVIDERS: ATTEND Physician Assistant
DX: M79.605 Pain in left leg (principal); R23.2 Flushing

== ENCOUNTER → 2023-05-10 | Outpatient (REF) | payer BC ==
[~2023-05-10] MED LIST changes: -EFFE150C2 PO; +EFFE150C3 PO; -FLUT50SP17; +FLUTISP
== END ==
LOC: M LAB REF 13:34
PROVIDERS: ATTEND Physician Assistant Medical
DX: J02.9 Acute pharyngitis, unspecified (principal)

== ENCOUNTER → 2023-06-30 | Outpatient (CLI) | payer BC | LOC: M WHC 12:54 | PROVIDERS: ATTEND Nurse Practitioner Family | DX: N60.11 Diffuse cystic mastopathy of right breast (principal); N60.12 Diffuse cystic mastopathy of left breast; N63.23 Unspecified lump in the left breast, lower outer quadrant; N64.4 Mastodynia | CPT/HCPCS: 76641; 76642; 77066; G0279 ==

== ENCOUNTER → 2023-08-12 | Outpatient (REF) | payer BC ==
[2023-08-12 17:20] LABS: BASO % 0.5 % (0.0-1.0); EOS # 0.1 10^3/uL (0.0-0.5); HEMATOCRIT 40.6 % (36.0-47.0); LYMPH # 1.6 10^3/uL (1.5-5.0); LYMPH % 26.9 % (24.0-44.0); MEAN CORPUSCULAR VOLUME 84.2 fl (80.0-96.0); MONO # 0.8 10^3/uL (0.0-0.8); MONO % 12.8 % (2.0-8.0); NEUTROPHILS # 3.4 10^3/uL (1.5-8.5); NEUTROPHILS % 57.3 % (36.0-66.0); PLATELET COUNT, AUTOMATED 276 10^3/uL (150-450); RED BLOOD COUNT 4.82 10^6/uL (4.00-5.40)
[2023-08-12 17:41] LABS: ALBUMIN 3.7 G/DL (3.2-5.2); ALKALINE PHOSPHATASE 51 U/L (46-116); ALT/SGPT 22 U/L (7.0-40); AST/SGOT 11 U/L (<34); BILIRUBIN,TOTAL 0.2 MG/DL (0.3-1.2); BLOOD UREA NITROGEN 13 MG/DL (9-23); CALCIUM LEVEL 7.8 MG/DL (8.5-10.1); CARBON DIOXIDE LEVEL 25 MMOL/L (20-31); CHLORIDE LEVEL 105 MMOL/L (98-107); CHOLESTEROL LEVEL 136 MG/DL (<200); CHOLESTEROL RISK RATIO 2.61 (<5); CREATININE FOR GFR 0.52 MG/DL (0.55-1.30); GLOMERULAR FILTRATION RATE > 60.0 (>58); GLUCOSE, FASTING 89 MG/DL (60-100); HDL CHOLESTEROL 52.1 MG/DL (>40); LDL CHOLESTEROL 68.9 MG/DL (<100); NON-HDL-C 83.9 MG/DL; POTASSIUM SERUM 3.8 MMOL/L (3.5-5.1); SODIUM LEVEL 137 MMOL/L (136-145); THYROID STIMULATING HORMONE 4.585 uIU/ML (0.55-4.78); TOTAL PROTEIN 6.9 G/DL (5.7-8.2); TRIGLYCERIDES LEVEL 75 MG/DL (<150)
== END ==
LOC: M LAB REF 16:24
PROVIDERS: ATTEND Physician Assistant
DX: E03.9 Hypothyroidism, unspecified (principal); R60.0 Localized edema; J45.30 Mild persistent asthma, uncomplicated

== ENCOUNTER → 2024-01-15 | Outpatient (CLI) | payer BC ==
[2024-01-15 10:09] LABS: BLOOD UREA NITROGEN 17 MG/DL (9-23); CALCIUM LEVEL 9.1 MG/DL (8.5-10.1); CARBON DIOXIDE LEVEL 31 MMOL/L (20-31); CHLORIDE LEVEL 105 MMOL/L (98-107); CREATININE FOR GFR 0.58 MG/DL (0.55-1.30); GLOMERULAR FILTRATION RATE > 60.0 (>58); GLUCOSE, FASTING 84 MG/DL (60-100); MAGNESIUM LEVEL 1.9 MG/DL (1.8-2.4); PTH INTACT 60.9 PG/ML (18.5-88.0); SODIUM LEVEL 139 MMOL/L (136-145)
[2024-01-15 10:11] LABS: TOTAL 25(OH) VITAMIN D 28.5 NG/ML (20.0-100.0)
== END ==
LOC: M LAB 08:43
PROVIDERS: ATTEND Physician Assistant
DX: E83.51 Hypocalcemia (principal)

== ENCOUNTER → 2024-09-15 | Outpatient (REF) | payer BC ==
[~2024-09-15] MED LIST changes: -SIME180C25 PO; +SIME1CAP4 PO
[2024-09-15 18:11] LABS: C REACTIVE PROTEIN QUANTITATIV 1.26 MG/DL (<1.0); IRON (FE) 49 UG/DL (50-170); PHOSPHORUS LEVEL 3.4 MG/DL (2.5-4.9)
[2024-09-15 18:12] LABS: FERRITIN 27.1 NG/ML (7.3-270.7); PERCENT SATURATION 13.3 % (13.2-45.0); RHEUMATOID FACTOR QUANT 5.5 IU/ML (<14); THYROID PEROXIDASE ANTIBODY < 28.0 U/ML (<60.0); TOTAL IRON BINDING CAPACITY 368 UG/DL (250-425)
[2024-09-15 18:14] LABS: TOTAL 25(OH) VITAMIN D 22.3 NG/ML (20.0-100.0); VITAMIN B12 LEVEL 208 PG/ML (211-911)
[2024-09-15 18:32] LABS: FOLATE 9.2 NG/ML (>5.4)
== END ==
LOC: M LAB REF 17:07
PROVIDERS: ATTEND Internal Medicine
DX: M15.9 Polyosteoarthritis, unspecified (principal); D64.9 Anemia, unspecified; Z98.84 Bariatric surgery status

== ENCOUNTER → 2024-10-08 | Outpatient (REF) | payer BC ==
[~2024-10-08] MED LIST changes: -AMBI10TA PO; -FLOM0.4C39 PO; +TAMS-18 PO; +ZOLP-533 PO
[2024-10-08 07:59] LABS: APPEARANCE, URINE CLEAR (CLEAR); BACTERIA, URINE AUTO NEGATIVE (NEGATIVE); BILIRUBIN, URINE AUTO NEGATIVE (NEGATIVE); BLOOD, URINE BLOOD 3+ (NEGATIVE); COLOR, URINE YELLOW (YELLOW); GLUCOSE, URINE (UA) AUTO NEGATIVE (NEGATIVE); KETONE, URINE AUTO NEGATIVE (NEGATIVE); LEUKOCYTE ESTERASE, URINE AUTO NEGATIVE (NEGATIVE); MUCUS, URINE SMALL (NEGATIVE); NITRITE, URINE AUTO NEGATIVE (NEGATIVE); PROTEIN, URINE AUTO NEGATIVE (NEGATIVE); RBC, URINE AUTO 9 /HPF (0-3); SPECIFIC GRAVITY URINE AUTO 1.016 (1.002-1.035); SQUAMOUS EPITHELIAL CELL UR AU 0 /HPF (0-6); UROBILINOGEN, URINE AUTO 0.2 mg/dL (0.0-2.0); WBC, URINE AUTO 1 /HPF (0-3)
== END ==
LOC: M LAB REF 07:10
PROVIDERS: ATTEND Physician Assistant
DX: R10.9 Unspecified abdominal pain (principal); Z87.442 Personal history of urinary calculi

== ENCOUNTER → 2025-01-10 | Outpatient (CLI) | payer BC ==
[~2025-01-10] MED LIST changes: +SENN-225 PO; -SENO8.6T5 PO
[2025-01-10 16:45] LABS: BASO # 0.1 10^3/uL (0.0-0.2); BASO % 0.6 % (0.0-1.0); EOS # 0.2 10^3/uL (0.0-0.5); EOS % 1.4 % (0.0-3.0); LYMPH # 3.4 10^3/uL (1.5-5.0); LYMPH % 27.0 % (24.0-44.0); MONO # 0.8 10^3/uL (0.0-0.8); MONO % 6.5 % (2.0-8.0); NEUTROPHILS # 8.2 10^3/uL (1.5-8.5); NEUTROPHILS % 64.2 % (36.0-66.0); PLATELET COUNT, AUTOMATED 323 10^3/uL (150-450)
== END ==
LOC: M LAB 16:24
PROVIDERS: ATTEND Internal Medicine
DX: D72.829 Elevated white blood cell count, unspecified (principal); G89.4 Chronic pain syndrome